=== PATIENT | female | born 1930 | race Caucasian/White ===

== ENCOUNTER 2017-04-02 14:38 | Inpatient (IN) | payer MEDICARE ==
[2017-04-02] MEDS ORDERED: Lasix 40 MG/4 ML ONE ×2 (15:10→16:00)
[2017-04-02] MEDS ORDERED: Lasix 40 MG/4 ML IV ONE ×2 (15:18→15:58)
--- NOTE | 2017-04-02 15:23 | ERPHSYRPT ---
- History of Present Illness Time Seen by Provider: 04/02/17 15:00 Source: patient Exam Limitations: clinical condition Patient Subjective Stated Complaint: PT HAS BEEN SHORT OF BREATH FOR DAYS AND IT HAS BECOME WORSE IN THE PAST DAY. EDEMA TO THE BLE. Triage Nursing Assessment: PT IS ALERT X 3. RESPIRATIONS EVEN AND NONLABORED. LUNG SOUNDS CLEAR ANTERIOR UPPER LOBES, POSTERIOR UPPER LOBES AND CRACKLES IN THE POSTERIOR MIDDLE AND LOWER LOBES. SKIN IS PINK WARM AND DRY. +2 PITTING EDEMA NOTED THE RIGHT LOWER LEGH AND +1 PITTING EDEMA TO THE LEFT LOWER LEG. Physician History: PATIENT WITH HISTORY OF ATRIAL FIBRILLATION AND CONGESTIVE HEART FAILURE COMPLAINS OF DYSPNEA UPON EXERTION FOR 3-4 DAYS. DENIES CHEST PAIN, COUGH, DIAPHORESIS AND PALPITATIONS. Timing/Duration: day(s) Activities at Onset: activity Severity of Dyspnea-Max: moderate Severity of Dyspnea-Current: moderate Possible Cause: occasional episodes Modifying Factors: Improves With: activity International travel in last 2 weeks: No Allergies/Adverse Reactions: No Known Drug Allergies Allergy (Verified 06/01/14 11:51) Home Medications: Cholecalciferol (Vitamin D3) [Vitamin D3] 1 cap PO DAILY 06/01/14 [History] Cyanocobalamin (Vitamin B-12) [Vitamin B-12] 1,000 mcg PO DAILY 06/01/14 [ History] Digoxin [Lanoxin] 1 tab PO DAILY 06/01/14 [History] Folic Acid 1 tab PO DAILY 06/01/14 [History] Losartan Potassium 100 mg PO DAILY 06/01/14 [History] Metoprolol Tartrate 50 mg [Lopressor 50 MG] 50 mg PO BID 06/01/14 [History ] Multivitamin W-Minerals/Lutein [Centrum Silver Tablet] 1 tab PO DAILY 06/01/14 [ History] Aspirin 81 mg PO DAILY 04/02/17 [History] Furosemide [Lasix] 20 mg PO DAILY 04/02/17 [History] Potassium Chloride 10 meq PO BID 04/02/17 [History] Hx Tetanus, Diphtheria Vaccination/Date Given: No Hx Influenza Vaccination/Date Given: Yes (2015) Hx Pneumococcal Vaccination/Date Given: Yes (2014) Immunizations Up to Date: Yes - Review of Systems Constitutional: No Fever, No Chills Eyes: No Symptoms Ears, Nose, & Throat: No Symptoms Respiratory: Dyspnea, Dyspnea on Exertion (RÍOS), No Cough Cardiac: No Symptoms, No Chest Pain, No Edema, No Syncope Abdominal/Gastrointestinal: No Symptoms, No Abdominal Pain, No Nausea, No Vomiting, No Diarrhea Genitourinary Symptoms: No Symptoms, No Dysuria Musculoskeletal: No Symptoms, No Back Pain, No Neck Pain Skin: No Symptoms, No Rash Neurological: No Symptoms, No Dizziness, No Focal Weakness, No Sensory Changes Psychological: No Symptoms Endocrine: No Symptoms All Other Systems: Reviewed and Negative - Past Medical History Pertinent Past Medical History: Yes Neurological History: Stroke ENT History: No Pertinent History Cardiac History: Arrhythmia, Hypertension Respiratory History: No Pertinent History Endocrine Medical History: No Pertinent History Musculoskeletal History: No Pertinent History History: No Pertinent History Psycho-Social History: No Pertinent History Female Reproductive Disorders: No Pertinent History - Past Surgical History Past Surgical History: Yes Neuro Surgical History: No Pertinent History Cardiac: No Pertinent History Respiratory: No Pertinent History Gastrointestinal: Cholecystectomy Genitourinary: No Pertinent History Musculoskeletal: No Pertinent History - Social History Smoking Status: Never smoker Exposure to second hand smoke: No (42 YRS) Drug Use: none Patient Lives Alone: No - Nursing Vital Signs Nursing Vital Signs: Initial Vital Signs Temperature 98.6 F Temperature Source Oral Pulse Rate 56 Respiratory Rate 20 Blood Pressure [] 158/83 Pain Intensity 0 - Physical Exam General Appearance: no apparent distress, alert Eye Exam: PERRL/EOMI Neck Exam: normal inspection, supple Respiratory Exam: crackles/rales (INSPIRATORY RALES) Cardiovascular/Chest Exam: normal heart sounds, regular rate/rhythm Abdominal/Gastrointestinal Exam: soft, normal bowel sounds, No tenderness, No distention, No mass Extremity Exam: non-tender, normal range of motion, normal inspection, no calf tenderness, no pedal edema Peripheral Pulses Exam: carotid (R): 2+, carotid (L): 2+, femoral (R): 2+, femoral (L): 2+, dorsalis-pedis (R): 2+, dorsalis-pedis (L): 2+ Neurologic Exam: alert, oriented x 3, cooperative, 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 tested, sensation nml, No motor deficits Skin Exam: normal color, warm, No dry SpO2 Interpretation: normal SpO2: 96 Oxygen Delivery: Room Air - Course EKG Interpreted by Me: RATE, Sinus Rhythm, Left Gaffney Deviation, 1st degree AV Block (BROAD QRS IN LEADS I AND AVL) - Radiology Exams Chest X-ray Interpretation: Discussed w/ radiologist (BORDERLINE CARDIOMEGALY WITH NEW VASCULAR CONGESTION AND SMALL BIBASILAR EFFUSONS FAVORING CARDIAC DECOMPENSATION, SUPERIMPOSED PNEUMONIA NOT COMPLETELY EXCLUDED) Ordered Tests: Active Orders 24 hr Category Date Time Status Bedrest with BRP/BSC TOLERATED Activity 04/02/17 16:49 Ordered Admission/Status Order ROUTINE Care 04/02/17 16:49 Ordered Call Admit Doctor for Orders ROUTINE Care 04/02/17 16:49 Ordered Varsity Baseball Coach STAT Care 04/02/17 15:05 Active Clean Catch Urine Specimen STAT Care 04/02/17 15:14 Active EKG-ER Only STAT Care 04/02/17 15:05 Active IV Care Q6H Care 04/02/17 16:49 Ordered IV Insertion STAT Care 04/02/17 15:05 Active Implement CHF Pathway ROUTINE Care 04/02/17 16:49 Ordered Oxygen-ED Only NASAL CANNULA 2 lpm Care 04/02/17 15:05 Active Telemetry ROUTINE Care 04/02/17 16:49 Ordered Weight,Daily 0600 Care 04/02/17 16:49 Ordered Regular Diet Diet 04/02/17 Breakfast Ordered CHEST 1 VIEW (PORTABLE) Stat Exams 04/02/17 15:06 Completed BLOOD CULTURE Stat Lab 04/02/17 13:15 Received BMP AM.LAB Lab 04/03/17 04:00 Ordered CBC AM.LAB Lab 04/03/17 04:00 Ordered CBC W DIFF Stat Lab 04/02/17 15:00 Completed CMP Stat Lab 04/02/17 15:00 Completed DIGOXIN Stat Lab 04/02/17 15:00 Completed Manual Differential NC Stat Lab 04/02/17 15:00 Completed NT PRO BNP AM.LAB Lab 04/03/17 04:00 Ordered NT PRO BNP Stat Lab 04/02/17 15:00 Completed PROTIME WITH INR Stat Lab 04/02/17 15:00 Completed TROPONIN Q3H Lab 04/02/17 15:15 Completed TROPONIN Q3H Lab 04/02/17 18:15 Ordered TROPONIN Q3H Lab 04/02/17 21:15 Ordered TROPONIN Q3H Lab 04/03/17 00:15 Ordered TROPONIN Q3H Lab 04/03/17 03:15 Ordered UA W/ MICROSCOPIC Stat Lab 04/02/17 15:30 Completed Oxygen NASAL CANNULA 2 lpm RT 04/02/17 16:49 Ordered Transfer Order Routine Transfer 04/02/17 16:49 Ordered Medication Summary Generic Name Dose Route Start Last Admin Trade Name Jeromy PRN Reason Stop Dose Admin Azithromycin 500 mg in 250 mls @ 250 mls/hr 04/02/17 16:05 04/02/17 16:25 Zithromax 500 Mg/ 250 Ml Nacl Premix IV 04/02/17 17:04 250 mls/hr STAT STA Administration Discontinued Medications Generic Name Dose Route Start Last Admin Trade Name Jeromy PRN Reason Stop Dose Admin Furosemide Confirm 04/02/17 15:10 Lasix 40 Mg/4 Ml Administered 04/02/17 15:11 Dose 40 mg .ROUTE .STK-MED ONE Furosemide 20 mg 04/02/17 15:18 04/02/17 15:20 Lasix 40 Mg/4 Ml IV 04/02/17 15:19 20 mg STAT ONE Administration Furosemide 20 mg 04/02/17 15:58 04/02/17 16:05 Lasix 40 Mg/4 Ml IV 04/02/17 15:59 20 mg STAT ONE Administration Furosemide Confirm 04/02/17 16:00 Lasix 40 Mg/4 Ml Administered 04/02/17 16:01 Dose 40 mg .ROUTE .STK-MED ONE Hydralazine HCl 10 mg 04/02/17 15:51 04/02/17 16:09 Apresoline 20 Mg/Ml Inj IV 04/02/17 15:52 10 mg STAT ONE Administration Hydralazine HCl Confirm 04/02/17 15:56 Apresoline 20 Mg/Ml Inj Administered 04/02/17 15:57 Dose 20 mg .ROUTE .STK-MED ONE Ceftriaxone Sodium/Dextrose 1 g in 50 mls @ 100 mls/hr 04/02/17 16:05 16:16 Rocephin 1 Gm-D5w 50 Ml Bag IV 04/02/17 16:34 100 mls/hr STAT STA Administration Ceftriaxone Sodium/Dextrose Confirm 04/02/17 16:14 Rocephin 1 Gm-D5w 50 Ml Bag Administered 04/02/17 16:15 Dose 1 g in 50 mls @ ud IV .STK-MED ONE Azithromycin Confirm 04/02/17 16:23 Zithromax 500 Mg/ 250 Ml Nacl Premix Administered 04/02/17 16:24 Dose 500 mg in 250 mls @ ud IV .STK-MED ONE Lab/Rad Data: Laboratory Result Diagrams 04/02/17 15:00 04/02/17 15:00 Laboratory Results 04/02/17 04/02/17 04/02/17 Range/Units 15:30 15:15 15:00 WBC (4.0-10.5) K/mm3 RBC (4.1-5.4) M/mm3 Hgb (12.0-16.0) gm/dl Hct (35-47) % MCV (78-100) fl MCH (26-32) pg MCHC (32-36) g/dl RDW (11.5-14.0) % Plt Count (150-450) K/mm3 MPV (6-9.5) fl Gran % (36.0-66.0) % Lymphocytes % (24.0-44.0) % Monocytes % (0.0-12.0) % Eosinophils % (0.00-5.0) % Basophils % (0.0-0.4) % Basophils # (0-0.4) INR (0.8-3.0) Sodium (136-145) mEq/L Potassium (3.5-5.1) mEq/L Chloride (98-107) mEq/L Carbon Dioxide (21-32) mEq/L Anion Gap (5-15) MEQ/L BUN (9-20) mg/dL Creatinine (0.55-1.30) mg/dl Estimated GFR ML/MIN Glucose (70-110) MG/DL Calcium (8.5-10.1) mg/dL Total Bilirubin (0.2-1.0) mg/dL AST (15-37) U/L ALT (12-78) U/L Alkaline Phosphatase (46-116) U/L Troponin I 0.039 (0.000-0.056) ng/ml NT-Pro-B Natriuret Pep (0-450) pg/ml Serum Total Protein (6.4-8.2) gm/dL Albumin (3.4-5.0) g/dL Ur Collection Type VOID Urine Color YELLOW (YELLOW) Urine Appearance CLEAR (CLEAR) Urine pH 6.0 (5-6) Ur Specific [place] 1.010 (1.005-1.025) Urine Protein TRACE (Negative) Urine Ketones NEGATIVE (NEGATIVE) Urine Blood 5-10 (0-5) Ruddy/ul Urine Nitrite NEGATIVE (NEGATIVE) Urine Bilirubin NEGATIVE (NEGATIVE) Urine Urobilinogen NORMAL (0-1) mg/dL Ur Leukocyte Esterase NEGATIVE (NEGATIVE) Urine Microscopic RBC 0-2 (0-2) /HPF Ur Epithelial Cells FEW (FEW) /HPF Urine Bacteria FEW (NEGATIVE) /HPF Urine Glucose 50 (NEGATIVE) mg/dL Digoxin 1.50 (0.5-1.5) ng/ml Specimen Received 04/02/17 1530 04/02/17 04/02/17 04/02/17 Range/Units 15:00 15:00 15:00 WBC 9.0 (4.0-10.5) K/mm3 RBC 4.63 (4.1-5.4) M/mm3 Hgb 13.5 (12.0-16.0) gm/dl Hct 43.9 (35-47) % MCV 94.8 (78-100) fl MCH 29.2 (26-32) pg MCHC 30.8 L (32-36) g/dl RDW 14.2 H (11.5-14.0) % Plt Count 167 (150-450) K/mm3 MPV 10.7 H (6-9.5) fl Gran % 71.8 H (36.0-66.0) % Lymphocytes % 19.2 L (24.0-44.0) % Monocytes % 6.6 (0.0-12.0) % Eosinophils % 2.1 (0.00-5.0) % Basophils % 0.3 (0.0-0.4) % Basophils # 0.03 (0-0.4) INR 1.32 (0.8-3.0) Sodium 141 (136-145) mEq/L Potassium 4.2 (3.5-5.1) mEq/L Chloride 106 (98-107) mEq/L Carbon Dioxide 24.4 (21-32) mEq/L Anion Gap 15.0 (5-15) MEQ/L BUN 24 H (9-20) mg/dL Creatinine 1.25 (0.55-1.30) mg/dl Estimated GFR 43 ML/MIN Glucose 245 H (70-110) MG/DL Calcium 10.1 (8.5-10.1) mg/dL Total Bilirubin 2.20 H (0.2-1.0) mg/dL AST 28 (15-37) U/L ALT 39 (12-78) U/L Alkaline Phosphatase 64 (46-116) U/L Troponin I (0.000-0.056) ng/ml NT-Pro-B Natriuret Pep 1388 H (0-450) pg/ml Serum Total Protein 7.5 (6.4-8.2) gm/dL Albumin 3.6 (3.4-5.0) g/dL Ur Collection Type Urine Color (YELLOW) Urine Appearance (CLEAR) Urine pH (5-6) Ur Specific [place] (1.005-1.025) Urine Protein (Negative) Urine Ketones (NEGATIVE) Urine Blood (0-5) Ruddy/ul Urine Nitrite (NEGATIVE) Urine Bilirubin (NEGATIVE) Urine Urobilinogen (0-1) mg/dL Ur Leukocyte Esterase (NEGATIVE) Urine Microscopic RBC (0-2) /HPF Ur Epithelial Cells (FEW) /HPF Urine Bacteria (NEGATIVE) /HPF Urine Glucose (NEGATIVE) mg/dL Digoxin (0.5-1.5) ng/ml Specimen Received - Progress Progress Note: 04/02/17 16:22 PATIENT GIVEN LASIX 40MG IV, HYDRALAZINE 10MG FOR BP 210/105, DIURESIS OF 1300, BP IMPROVE TO BP 158/83 Blood Culture(s) Obtained: Yes Antibiotics given: Yes Discussed with : Joy (DISCUSSED WITH DR SCOTT AT 1610 FOR ADMISSION) Will see patient in: hospital (full admit) - Departure Time of Disposition: 16:55 Departure Disposition: In-patient Admission Clinical Impression: ACUTE CONGESTIVE HEART FAILURE, PNEUMONIA Condition: Stable Critical Care Time: No Referrals: PO SCOTT MD [Primary Care Provider] -
--- NOTE | 2017-04-02 15:24 | XRAY ---
Indication: Dyspnea. Lower extremity pain and swelling. Comparison: February 12, 2017. Portable chest demonstrates again borderline cardiomegaly with new vascular congestion and small bibasilar effusions favoring cardiac decompensation. Superimposed pneumonia not completely excluded. Stable osteopenia and degenerative changes.
[2017-04-02 15:35] LABS: BASOPHIL % 0.3 % (0.0-0.4); Eosinophil % 2.1 % (0.00-5.0); Granulocytes % 71.8 % (36.0-66.0); Lymphocytes % 19.2 % (24.0-44.0); Mean Cell Volume 94.8 fl (78-100); Mean Corpuscular Hemoglobin 29.2 pg (26-32); Mean Platelet Volume 10.7 fl (6-9.5); Monocytes % 6.6 % (0.0-12.0); Platelet Count 167 K/mm3 (150-450); Red Blood Count 4.63 M/mm3 (4.1-5.4); Red Cell Distribution Width 14.2 % (11.5-14.0)
[2017-04-02 15:36] LABS: INR 1.32 (0.8-3.0)
[2017-04-02 15:51] LABS: ALBUMIN 3.6 g/dL (3.4-5.0); BILIRUBIN,TOTAL 2.2 mg/dL (0.2-1.0); Carbon Dioxide 24.4 mEq/L (21-32); Potassium 4.2 mEq/L (3.5-5.1); Total Protein 7.5 gm/dL (6.4-8.2)
[2017-04-02] MEDS ORDERED: APRESOLINE 20 MG/ML INJ IV ONE (15:51)
[2017-04-02 15:54] LABS: Bilirubin NEGATIVE (NEGATIVE); COMPLETE URINE MICROSCOPIC? YES; Collection Type VOID; Glucose 50 mg/dL (NEGATIVE); Leukocyte Esterase NEGATIVE (NEGATIVE)
[2017-04-02] MEDS ORDERED: APRESOLINE 20 MG/ML INJ ONE (15:56)
[2017-04-02 16:04] LABS: Bacteria FEW /HPF (NEGATIVE); Epithelial Cells FEW /HPF (FEW)
[2017-04-02] MEDS ORDERED: ROCEPHIN 1 Gm-D5w 50 ml Bag** 1 G/50 ML IVPB IV STA (16:05)
[2017-04-02] MEDS ORDERED: Zithromax 500 MG/ 250 ML NaCl Premix 500 MG/250 ML IVPB IV STA (16:05)
[2017-04-02] MEDS ORDERED: ROCEPHIN 1 Gm-D5w 50 ml Bag** 1 G/50 ML IVPB IV ONE (16:14)
[2017-04-02] MEDS ORDERED: Zithromax 500 MG/ 250 ML NaCl Premix 500 MG/250 ML IVPB IV ONE (16:23)
[2017-04-02 17:06] LABS: Eosinophil 4 % (0.00-3.0); Platelet Estimate NORMAL (NORMAL); Total Cells Counted 100
[2017-04-02] MEDS: Lasix 20 MG/2 ML IV SCH (17:58)
[2017-04-02] MEDS ORDERED: Cozaar 50 MG ONE (19:13)
[2017-04-02] MEDS: Lopressor 50 MG PO SCH (23:09)
[2017-04-02] MEDS: Klor Con 10 MEQ PO SCH (23:09)
[2017-04-03 03:31] LABS: Platelet Count 178 K/mm3 (150-450); Red Cell Distribution Width 14.3 % (11.5-14.0); White Blood Count 9.2 K/mm3 (4.0-10.5)
[2017-04-03 03:55] LABS: ANION GAP 13.3 MEQ/L (5-15); Carbon Dioxide 26.5 mEq/L (21-32); Potassium 3.6 mEq/L (3.5-5.1)
[2017-04-03] MEDS: ECOTRIN 81 MG PO SCH (08:17)
[2017-04-03] MEDS: Cozaar 50 MG PO SCH (08:18)
[2017-04-03] MEDS: VITAMIN D PO SCH (08:18)
[2017-04-03] MEDS: Lasix 20 MG/2 ML IV SCH ×2 (08:19→16:01)
[2017-04-03] MEDS: Klor Con 10 MEQ PO SCH ×2 (08:19→22:02)
[2017-04-03] MEDS: FOLATE 1 MG PO SCH (08:19)
[2017-04-03] MEDS: Lopressor 50 MG PO SCH ×2 (08:19→22:02)
[2017-04-03] MEDS: THERAGRAN MULTIVITAMIN PO SCH (08:19)
[2017-04-03] MEDS: Vitamin B-12 500 MCG PO SCH (08:23)
[2017-04-03] MEDS: ROCEPHIN 1 Gm-D5w 50 ml Bag** 1 G/50 ML IVPB IV SCH (09:43)
[2017-04-03] MEDS ORDERED: NON-FORMULARY ITEM (Aspirin [Aspirin] 81 MG) PO SCH (10:00)
[2017-04-03] MEDS ORDERED: NON-FORMULARY ITEM (Multivitamin W-Minerals/Lutein [Centrum Silver Tablet] 1 TAB) PO SCH (10:00)
[2017-04-03] MEDS ORDERED: Lanoxin 0.125MG TABLET PO SCH (10:00)
[2017-04-03] MEDS ORDERED: Lasix 20 MG/2 ML IV SCH (10:00)
[2017-04-03] MEDS ORDERED: NON-FORMULARY ITEM (Cyanocobalamin (Vitamin B-12) [Vitamin B-12] 1,000 MCG) PO SCH (10:00)
[2017-04-03] MEDS ORDERED: FOLIC ACID PO SCH (10:00)
[2017-04-03] MEDS ORDERED: NON-FORMULARY ITEM (Cholecalciferol (Vitamin D3) [Vitamin D3] 1 CAP) PO SCH (10:00)
[2017-04-03] MEDS: Zithromax 500 MG/ 250 ML NaCl Premix 500 MG/250 ML IVPB IV SCH (10:15)
--- NOTE | 2017-04-03 12:53 | PCM.HP ---
History of Present Illness - Chief Complaint Chief Complaint: c/o shortness of breath for 1-2 days History of Present Illness: is a 86 year old female.came to ER with c/o shortness of breath and chest heaviness, Patient blood pressure was high. Patient lives at assited living facilities - Review of Systems Constitutional: No Fever, No Chills Eyes: No Symptoms Ears, Nose, & Throat: No Symptoms Respiratory: No Cough, No Short Of Breath Cardiac: No Chest Pain, No Edema, No Syncope Abdominal/Gastrointestinal: No Abdominal Pain, No Nausea, No Vomiting, No Diarrhea Genitourinary Symptoms: No Dysuria Musculoskeletal: No Back Pain, No Neck Pain Skin: No Rash Neurological: No Dizziness, No Focal Weakness, No Sensory Changes Psychological: No Symptoms Endocrine: No Symptoms Hematologic/Lymphatic: No Symptoms Immunological/Allergic: No Symptoms Medications & Allergies Home Medications: Home Medication List Cholecalciferol (Vitamin D3) [Vitamin D3] 1 cap PO DAILY 06/01/14 [History Confirmed 04/02/17] Cyanocobalamin (Vitamin B-12) [Vitamin B-12] 1,000 mcg PO DAILY 06/01/14 [ History Confirmed 04/02/17] Digoxin [Lanoxin] 1 tab PO DAILY 06/01/14 [History Confirmed 04/02/17] Folic Acid 1 tab PO DAILY 06/01/14 [History Confirmed 04/02/17] Losartan Potassium 100 mg PO DAILY 06/01/14 [History Confirmed 04/02/17] Metoprolol Tartrate 50 mg [Lopressor 50 MG] 50 mg PO BID 06/01/14 [ History Confirmed 04/02/17] Multivitamin W-Minerals/Lutein [Centrum Silver Tablet] 1 tab PO DAILY 06/01/14 [ History Confirmed 04/02/17] Aspirin 81 mg PO DAILY 04/02/17 [History Confirmed 04/02/17] Furosemide [Lasix] 20 mg PO DAILY 04/02/17 [History Confirmed 04/02/17] Potassium Chloride 10 meq PO BID 04/02/17 [History Confirmed 04/02/17] Allergies/Adverse Reactions: Allergies Allergy/AdvReac Type Severity Reaction Status Date / Time No Known Drug Allergies Allergy Verified 06/01/14 11:51 - Past Medical History Past Medical History: Yes Neurological History: Stroke ENT History: No Pertinent History Cardiac History: Arrhythmia, Hypertension Respiratory History: No Pertinent History Endocrine Medical History: No Pertinent History Musculoskelatal History: No Pertinent History GI Medical History: No Pertinent History History: No Pertinent History Pyscho-Social History: No Pertinent History Reproductive Disorders: No Pertinent History - Female History Are you now?: No - Past Surgical History Past Surgical History: Yes Neuro Surgical History: No Pertinent History Cardiac History: No Pertinent History Respiratory Surgery: No Pertinent History GI Surgical History: Cholecystectomy Genitourinary Surgical Hx: No Pertinent History Musculskeletal Surgical Hx: No Pertinent History Female Surgical History: No Pertinent History - Social History Smoking Status: Never smoker Exposure to second hand smoke: No (42 YRS) Alcohol: None Drug Use: none - Physical Exam Vital Signs: Vital Signs - 24 hr Temp Pulse Resp BP BP Pulse Ox 04/03/17 12:45 200/76 04/03/17 11:08 98.3 F 67 12 201/81 95 04/03/17 09:04 54 L 18 93 L 04/03/17 07:34 98.8 F 53 L 12 186/81 93 L 04/03/17 04:00 98.5 F 69 20 170/70 93 L 04/02/17 23:58 98.7 F 73 18 155/71 95 04/02/17 20:43 161/77 04/02/17 20:02 74 22 92 L 04/02/17 19:41 98.0 F 67 24 202/88 96 04/02/17 18:00 98.0 F 64 20 229/90 97 04/02/17 17:52 95 04/02/17 17:41 66 20 187/76 96 04/02/17 16:54 96 04/02/17 16:32 56 L 20 158/83 04/02/17 15:50 54 L 24 220/92 98 04/02/17 15:28 61 24 210/91 98 04/02/17 14:52 20 96 04/02/17 14:38 98.6 F 63 20 93 L Oxygen-Last 24 hours O2 Percentage 2 Liters = 28% O2 Percentage 2 Liters = 28% General Appearance: no apparent distress, alert Neurologic Exam: alert, oriented x 3, cooperative, normal mood/affect, nml cerebellar function, nml station & gait, sensation nml, No motor deficits Eye Exam: PERRL/EOMI, eyes nml inspection Ears, Nose, Throat Exam: normal ENT inspection, TMs normal, pharynx normal, moist mucous membranes Neck Exam: normal inspection, non-tender, supple, full range of motion Respiratory Exam: normal breath sounds, lungs clear, No respiratory distress Cardiovascular Exam: regular rate/rhythm, normal heart sounds, normal peripheral pulses Gastrointestinal/Abdomen Exam: soft, normal bowel sounds, No tenderness, No mass Back Exam: normal inspection, normal range of motion, No CVA tenderness, No vertebral tenderness Extremity Exam: normal inspection, normal range of motion, pelvis stable Skin Exam: normal color, warm, dry, No rash Lymphatic Exam: No adenopathy Results - Labs Lab/Micro Results: Lab Results-Last 24 Hours 04/02/17 04/02/17 04/03/17 Range/Units 18:20 21:15 00:18 WBC (4.0-10.5) K/mm3 RBC (4.1-5.4) M/mm3 Hgb (12.0-16.0) gm/dl Hct (35-47) % MCV (78-100) fl MCH (26-32) pg MCHC (32-36) g/dl RDW (11.5-14.0) % Plt Count (150-450) K/mm3 MPV (6-9.5) fl Sodium (136-145) mEq/L Potassium (3.5-5.1) mEq/L Chloride (98-107) mEq/L Carbon Dioxide (21-32) mEq/L Anion Gap (5-15) MEQ/L BUN (9-20) mg/dL Creatinine (0.55-1.30) mg/dl Estimated GFR ML/MIN Glucose (70-110) MG/DL Calcium (8.5-10.1) mg/dL Troponin I 0.037 0.045 0.058 H* (0.000-0.056) ng/ml NT-Pro-B Natriuret Pep (0-450) pg/ml 04/03/17 04/03/17 04/03/17 Range/Units 03:27 03:27 03:27 WBC 9.2 (4.0-10.5) K/mm3 RBC 4.80 (4.1-5.4) M/mm3 Hgb 13.9 (12.0-16.0) gm/dl Hct 43.7 (35-47) % MCV 91.0 (78-100) fl MCH 29.0 (26-32) pg MCHC 31.8 L (32-36) g/dl RDW 14.3 H (11.5-14.0) % Plt Count 178 (150-450) K/mm3 MPV 10.0 H (6-9.5) fl Sodium 142 (136-145) mEq/L Potassium 3.6 (3.5-5.1) mEq/L Chloride 106 (98-107) mEq/L Carbon Dioxide 26.5 (21-32) mEq/L Anion Gap 13.3 (5-15) MEQ/L BUN 20 (9-20) mg/dL Creatinine 1.03 (0.55-1.30) mg/dl Estimated GFR 54 ML/MIN Glucose 222 H (70-110) MG/DL Calcium 9.8 (8.5-10.1) mg/dL Troponin I 0.069 H* (0.000-0.056) ng/ml NT-Pro-B Natriuret Pep 2088 H (0-450) pg/ml 04/03/17 Range/Units 08:31 WBC (4.0-10.5) K/mm3 RBC (4.1-5.4) M/mm3 Hgb (12.0-16.0) gm/dl Hct (35-47) % MCV (78-100) fl MCH (26-32) pg MCHC (32-36) g/dl RDW (11.5-14.0) % Plt Count (150-450) K/mm3 MPV (6-9.5) fl Sodium (136-145) mEq/L Potassium (3.5-5.1) mEq/L Chloride (98-107) mEq/L Carbon Dioxide (21-32) mEq/L Anion Gap (5-15) MEQ/L BUN (9-20) mg/dL Creatinine (0.55-1.30) mg/dl Estimated GFR ML/MIN Glucose (70-110) MG/DL Calcium (8.5-10.1) mg/dL Troponin I 0.069 H* (0.000-0.056) ng/ml NT-Pro-B Natriuret Pep (0-450) pg/ml - Other Procedures and Tests Respiratory Therapy 04/02/17 16:49 Oxygen NASAL CANNULA 2 lpm Assessment/Plan (1) Hypertensive emergency Current Visit: Yes Status: Acute Assessment & Plan: will admit patient will continue antihypertensive medications and IV lasix Code(s): I16.1 - HYPERTENSIVE EMERGENCY (2) Hypertensive CHF (congestive heart failure) Current Visit: Yes Status: Chronic Assessment & Plan: continue lasix Code(s): I11.0 - HYPERTENSIVE HEART DISEASE WITH HEART FAILURE
[2017-04-03] MEDS: Catapres 0.1 MG PO SCH ×2 (13:29→22:01)
[2017-04-03] MEDS ORDERED: Lasix 20 MG/2 ML IV ONE (15:55)
[2017-04-03] MEDS ORDERED: Lopressor 50 MG PO ONE (17:15)
[2017-04-03] MEDS ORDERED: Cozaar 50 MG PO ONE (19:15)
[2017-04-04] MEDS: VITAMIN D PO SCH (09:02)
[2017-04-04] MEDS: Cozaar 50 MG PO SCH (09:02)
[2017-04-04] MEDS: FOLATE 1 MG PO SCH (09:02)
[2017-04-04] MEDS: ROCEPHIN 1 Gm-D5w 50 ml Bag** 1 G/50 ML IVPB IV SCH (09:02)
[2017-04-04] MEDS: ECOTRIN 81 MG PO SCH (09:03)
[2017-04-04] MEDS: Klor Con 10 MEQ PO SCH (09:03)
[2017-04-04] MEDS: Catapres 0.1 MG PO SCH (09:03)
[2017-04-04] MEDS: Lopressor 50 MG PO SCH (09:03)
[2017-04-04] MEDS: THERAGRAN MULTIVITAMIN PO SCH (09:03)
[2017-04-04] MEDS: Lasix 20 MG/2 ML IV SCH (09:03)
[2017-04-04] MEDS: Vitamin B-12 500 MCG PO SCH (09:03)
[2017-04-04] MEDS: Zithromax 500 MG/ 250 ML NaCl Premix 500 MG/250 ML IVPB IV SCH (09:42)
--- NOTE | 2017-04-04 13:21 | PCM.DS ---
Discharge Summary Date of Admission: 04/02/17 17:41 Admitting Physician: PO SCOTT Primary Care Provider: PO SCOTT Allergies Allergies No Known Drug Allergies Allergy (Verified 06/01/14 11:51) Hospital Summary - Hospital Course Hospital Course: Chief Complaint Diagnosis c/o shortness of breath for 1-2 days Allergies Allergy/AdvReac Type Severity Reaction Status Date / Time No Known Drug Allergies Allergy Verified 06/01/14 11:51 Vital Signs (Last 24 hours) Temp Pulse Resp BP BP Pulse Ox 04/04/17 12:51 97.8 F 04/04/17 07:09 98 F 74 18 120/56 201/81 97 04/04/17 04:05 98.1 F 79 18 122/58 96 04/03/17 23:29 98.1 F 81 18 97/55 97 04/03/17 20:14 92 L 04/03/17 19:49 98.2 F 76 20 137/72 96 04/03/17 14:54 98.6 F 80 15 164/75 93 L Home Medications Medication Instructions Recorded Confirmed Last Taken Type Aspirin 81 mg PO DAILY 04/02/17 04/02/17 04/02/17 History Furosemide [Lasix] 20 mg PO DAILY 04/02/17 04/02/17 04/02/17 History Potassium Chloride 10 meq PO BID 04/02/17 04/02/17 04/02/17 History Current Medications Generic Name Dose Route Start Last Admin Trade Name Freq PRN Reason Stop Dose Admin Aspirin 81 mg 04/03/17 10:00 04/04/17 09:03 Ecotrin 81 Mg PO 05/03/17 09:59 81 mg DAILY MARGI Administration Cholecalciferol 2,000 unit 04/03/17 10:00 04/04/17 09:02 Vitamin D PO 05/03/17 09:59 2,000 unit DAILY MARGI Administration Clonidine 0.1 mg 04/03/17 13:30 04/04/17 09:03 Catapres 0.1 Mg PO 05/03/17 13:29 0.1 mg BID MARGI Administration Cyanocobalamin 1,000 mcg 04/03/17 10:00 04/04/17 09:03 Vitamin B-12 500 Mcg PO 05/03/17 09:59 1,000 mcg DAILY MARGI Administration Folic Acid 1 mg 04/03/17 10:00 04/04/17 09:02 Folate 1 Mg PO 05/03/17 09:59 1 mg DAILY MARGI Administration Furosemide 20 mg 04/02/17 17:00 04/04/17 09:03 Lasix 20 Mg/2 Ml IV 05/02/17 16:59 20 mg BID DIURETIC MARGI Administration Azithromycin 500 mg in 250 mls @ 250 mls/hr 04/03/17 10:00 04/04/17 09:42 Zithromax 500 Mg/ 250 Ml Nacl Premix IV 05/03/17 09:59 250 mls/hr Q24H10 MARGI Administration Ceftriaxone Sodium/Dextrose 1 g in 50 mls @ 100 mls/hr 04/03/17 10:00 09:02 Rocephin 1 Gm-D5w 50 Ml Bag IV 05/03/17 09:59 100 mls/hr Q24H10 MARGI Administration Losartan Potassium 100 mg 04/03/17 10:00 04/04/17 09:02 Cozaar 50 Mg PO 05/03/17 09:59 100 mg DAILY MARGI Administration Metoprolol Tartrate 50 mg 04/02/17 22:00 04/04/17 09:03 Lopressor 50 Mg PO 05/02/17 21:59 50 mg BID MARGI Administration Multivitamins 1 tab 04/03/17 10:00 04/04/17 09:03 Theragran Multivitamin PO 05/03/17 09:59 1 tab DAILY MARGI Administration Potassium Chloride 10 meq 04/02/17 22:00 04/04/17 09:03 Klor Con 10 Meq PO 05/02/17 21:59 10 meq BID MARGI Administration Discontinued Medications Generic Name Dose Route Start Last Admin Trade Name Freq PRN Reason Stop Dose Admin Digoxin 0.125 mg 04/03/17 10:00 Lanoxin 0.125mg Tablet PO 05/03/17 09:59 DAILY MARGI Furosemide Confirm 04/02/17 15:10 Lasix 40 Mg/4 Ml Administered 04/02/17 15:11 Dose 40 mg .ROUTE .STK-MED ONE Furosemide 20 mg 04/02/17 15:18 04/02/17 15:20 Lasix 40 Mg/4 Ml IV 04/02/17 15:19 20 mg STAT ONE Administration Furosemide 20 mg 04/02/17 15:58 04/02/17 16:05 Lasix 40 Mg/4 Ml IV 04/02/17 15:59 20 mg STAT ONE Administration Furosemide Confirm 04/02/17 16:00 Lasix 40 Mg/4 Ml Administered 04/02/17 16:01 Dose 40 mg .ROUTE .STK-MED ONE Hydralazine HCl 10 mg 04/02/17 15:51 04/02/17 16:09 Apresoline 20 Mg/Ml Inj IV 04/02/17 15:52 10 mg STAT ONE Administration Hydralazine HCl Confirm 04/02/17 15:56 Apresoline 20 Mg/Ml Inj Administered 04/02/17 15:57 Dose 20 mg .ROUTE .STK-MED ONE Ceftriaxone Sodium/Dextrose 1 g in 50 mls @ 100 mls/hr 04/02/17 16:05 16:16 Rocephin 1 Gm-D5w 50 Ml Bag IV 04/02/17 16:34 100 mls/hr STAT STA Administration Azithromycin 500 mg in 250 mls @ 250 mls/hr 04/02/17 16:05 04/02/17 16:25 Zithromax 500 Mg/ 250 Ml Nacl Premix IV 04/02/17 17:04 250 mls/hr STAT STA Administration Ceftriaxone Sodium/Dextrose Confirm 04/02/17 16:14 Rocephin 1 Gm-D5w 50 Ml Bag Administered 04/02/17 16:15 Dose 1 g in 50 mls @ ud IV .STK-MED ONE Azithromycin Confirm 04/02/17 16:23 Zithromax 500 Mg/ 250 Ml Nacl Premix Administered 04/02/17 16:24 Dose 500 mg in 250 mls @ ud IV .STK-MED ONE Losartan Potassium 100 mg 04/03/17 19:15 04/02/17 19:16 Cozaar 50 Mg PO 04/03/17 19:16 100 mg STAT ONE Administration Losartan Potassium Confirm 04/02/17 19:13 Cozaar 50 Mg Administered 04/02/17 19:14 Dose 100 mg .ROUTE .STK-MED ONE Metoprolol Tartrate 50 mg 04/03/17 17:15 04/02/17 19:16 Lopressor 50 Mg PO 04/03/17 17:16 50 mg STAT ONE Administration Intake & Output (Last 24 hours) 04/02/17 04/03/17 04/04/17 04/05/17 11:59 11:59 11:59 11:59 Intake Total 500 1660 240 Output Total 4600 1675 450 Balance -4100 -15 -210 Weight 59.92 kg 60.237 kg Microbiology Results (Last 24 hours) 04/02/17 13:15 Blood - Pending 04/02/17 13:15 Blood Blood Culture - Preliminary NO GROWTH TO DATE 04/02/17 15:00 Blood - Final 04/02/17 15:00 Blood Blood Culture - Preliminary Coagulase Negative Staph. Possible Contaminant. Clinical judgement required. NO FURTHER WORKUP WILL BE PERFORMED UNLESS PHYSICIAN REQUESTED WITHIN THE NEXT 72 HOURS Orders (Last 24 hours) Category Date Time Status Clonidine HCl 0.1 mg [Catapres 0.1 MG] Med 04/03/17 13:30 Active 0.1 mg PO BID Losartan Potassium 50 mg [Cozaar 50 MG] Med 04/03/17 19:15 Discontinued 100 mg PO STAT ONE Metoprolol Tartrate 50 mg [Lopressor 50 MG] Med 04/03/17 17:15 Discontinued 50 mg PO STAT ONE Patient Care Notes (Last 24 hours) 04/04/17 10:15 (created 04/04/17 13:15) Case Management Note by Jenny Song REVIEWED DISCHARGE PLAN. CONTINUES TO PLAN TO RETURN TO [facility] WITH . DECLINED ADD NEEDS. WILL CONTINUE TO FOLLOW AND ASSESS FOR ALL DC NEEDS. Initialized on 04/04/17 13:15 - END OF NOTE 04/03/17 14:00 Nursing Note by MARÍA OLIVEIRA Positive blood culture result called to Dr. Scott's nurse at the [place] office today at 1400. Initialized on 04/03/17 14:00 - END OF NOTE Doing better, blood culture possible contaminations.BP is under control. will d/c her home - Vitals & Intake/Output Vital Signs: Vital Signs Temperature 97.8 F 04/04/17 12:51 Pulse Rate 74 04/04/17 07:09 Respiratory Rate 18 04/04/17 07:09 Blood Pressure 201/81 04/04/17 07:09 O2 Sat by Pulse Oximetry 97 04/04/17 07:09 Oxygen-Last Documented O2 Percentage 2 Liters = 28% Intake & Output: Intake & Output 04/02/17 04/03/17 04/04/17 04/05/17 11:59 11:59 11:59 11:59 Intake Total 500 1660 240 Output Total 4000 1675 450 Balance -3500 -15 -210 Weight 59.92 kg 60.237 kg - Lab Result Diagrams: 04/03/17 03:27 04/03/17 03:27 - Procedures and Test Procedures and Tests throughout Hospitalization: Therapy Orders & Screens 04/02/17 16:49 Oxygen NASAL CANNULA 2 lpm Comment: Diagnosis: CHF Discharge Exam General Appearance: no apparent distress, alert Neurologic Exam: alert, oriented x 3, cooperative, normal mood/affect, nml cerebellar function, sensation nml, No motor deficits Skin Exam: normal color, warm, dry Eye Exam: PERRL, EOMI, eyes nml inspection Ears, Nose, Throat Exam: normal ENT inspection, pharynx normal, moist mucous membranes Neck Exam: normal inspection, non-tender, supple, full range of motion Respiratory Exam: normal breath sounds, lungs clear, No respiratory distress Cardiovascular Exam: regular rate/rhythm, normal heart sounds Gastrointestinal/Abdomen Exam: soft, No tenderness, No mass Extremity Exam: normal inspection, normal range of motion Back Exam: normal inspection, normal range of motion, No CVA tenderness, No vertebral tenderness Pelvic Exam: deferred Rectal Exam: deferred Final Diagnosis/Problem List - Final Discharge Diagnosis/Problem (1) Hypertensive emergency Current Visit: Yes Status: Resolved Priority: High (2) Hypertensive CHF (congestive heart failure) Current Visit: Yes Status: Chronic Priority: High - Discharge Discharge Date: 04/04/17 Disposition: Home, Self-Care Condition: Stable Prescriptions: New Clonidine HCl 0.1 mg [Catapres 0.1 MG] 0.1 mg PO BID #0 tablet Continue Metoprolol Tartrate 50 mg [Lopressor 50 MG] 50 mg PO BID Folic Acid 1 tab PO DAILY Digoxin [Lanoxin] 1 tab PO DAILY Losartan Potassium 100 mg PO DAILY Multivitamin W-Minerals/Lutein [Centrum Silver Tablet] 1 tab PO DAILY Cholecalciferol (Vitamin D3) [Vitamin D3] 1 cap PO DAILY Cyanocobalamin (Vitamin B-12) [Vitamin B-12] 1,000 mcg PO DAILY Furosemide [Lasix] 20 mg PO DAILY Aspirin 81 mg PO DAILY Potassium Chloride 10 meq PO BID Follow up with: PO SCOTT MD [Primary Care Provider] - 1 Week
[2017-04-04 14:14] VITALS: BP 126/74; PULSE 86; O2SAT 96
== END 2017-04-04 14:25 | disposition home or self-care (01) | DRG 309 ==
LOC: ED 14:38 → MED SURG 17:41
PROVIDERS: ADMIT General Practice; ATTEND General Practice
DX: I48.91 Unspecified atrial fibrillation (principal); I16.1 Hypertensive emergency; I11.0 Hypertensive heart disease with heart failure; I50.9 Heart failure, unspecified; Z79.899 Other long term (current) drug therapy; Z86.73 Personal history of transient ischemic attack (TIA), and cerebral infarction without residual deficits
CPT/HCPCS: 36000; 36415; 71010; 80048; 80053; 80162; 81000; 82962; 83880; 84484; 85025; 85027; 85610; 87040; 93005; 93041; 94760; 96365; 96374; 96375; 96376; 99285; J0360; J0456; J0696; J1940; A9270-GY

== ENCOUNTER 2017-12-29 13:53 | Observation (INO) | payer MEDICARE ==
--- NOTE | 2017-12-29 14:23 | ERPHSYRPT ---
- History of Present Illness Time Seen by Provider: 12/29/17 14:18 Source: patient, EMS Exam Limitations: no limitations Patient Subjective Stated Complaint: pt brought in by ambulance for weakness, pt states she does not feel like she needs to be here, she states uses walker, no falls. she states she just aging Triage Nursing Assessment: pt alert. resp easy, skin w/d/p, Physician History: patient was sent from [facility] for evaluation of generalized weakness. Patient's with previous history of CVA, who had been having generalized weakness for the past 7 days. Patient states that she is weak all over without any focal deficits. Patient does ambulate with walker and noticed decrease stamina. Patient also notes she's been having more thirst and urinary frequency , but no dysuria or urgency. Patient denies any headaches, blurred vision, dizziness, chest pain, palpitation, abdominal pain, fever, chills, cough, shortness of breath or any illness. Patient also states that "I don't know why I am in the ER." Timing/Duration: day(s) (7) Severity: mild Modifying Factors: Improves With: immobilization (improved), movement (worsen) Associated Symptoms: denies symptoms, No nausea, No vomiting, No shortness of breath, No fever, No malaise, No syncope Allergies/Adverse Reactions: No Known Drug Allergies Allergy (Verified 12/29/17 14:00) Home Medications: Cholecalciferol (Vitamin D3) [Vitamin D3] 1 cap PO DAILY 06/01/14 [History] Cyanocobalamin (Vitamin B-12) [Vitamin B-12] 1,000 mcg PO DAILY 06/01/14 [ History] Digoxin [Lanoxin] 1 tab PO DAILY 06/01/14 [History] Folic Acid 1 tab PO DAILY 06/01/14 [History] Losartan Potassium 100 mg PO DAILY 06/01/14 [History] Metoprolol Tartrate 50 mg [Lopressor 50 MG] 50 mg PO BID 06/01/14 [History ] Multivitamin W-Minerals/Lutein [Centrum Silver Tablet] 1 tab PO DAILY 06/01/14 [ History] Aspirin 81 mg PO DAILY 04/02/17 [History] Furosemide [Lasix] 20 mg PO DAILY 04/02/17 [History] Potassium Chloride 10 meq PO BID 04/02/17 [History] Hx Tetanus, Diphtheria Vaccination/Date Given: No Hx Influenza Vaccination/Date Given: No Hx Pneumococcal Vaccination/Date Given: No Immunizations Up to Date: Yes - Review of Systems Constitutional: No Fever, No Chills Eyes: No Symptoms Ears, Nose, & Throat: No Symptoms Respiratory: No Cough, No Dyspnea Cardiac: No Chest Pain, No Edema, No Syncope Abdominal/Gastrointestinal: No Abdominal Pain, No Nausea, No Vomiting, No Diarrhea Genitourinary Symptoms: Frequency, No Dysuria, No Hesitancy, No Incontinence, No Urgency Musculoskeletal: No Symptoms, No Back Pain, No Neck Pain Skin: No Symptoms, No Rash Neurological: No Dizziness, No Focal Weakness, No Sensory Changes Psychological: No Symptoms Endocrine: No Symptoms All Other Systems: Reviewed and Negative - Past Medical History Pertinent Past Medical History: Yes Neurological History: Stroke ENT History: No Pertinent History Cardiac History: Arrhythmia, Hypertension Respiratory History: No Pertinent History Endocrine Medical History: No Pertinent History Musculoskeletal History: No Pertinent History GI Medical History: No Pertinent History History: No Pertinent History Psycho-Social History: No Pertinent History Female Reproductive Disorders: No Pertinent History - Past Surgical History Past Surgical History: Yes Neuro Surgical History: No Pertinent History Cardiac: No Pertinent History Respiratory: No Pertinent History Gastrointestinal: Cholecystectomy Genitourinary: No Pertinent History Musculoskeletal: No Pertinent History Female Surgical History: No Pertinent History - Social History Smoking Status: Never smoker Exposure to second hand smoke: No Drug Use: none Patient Lives Alone: No - Female History Hx Last Menstrual Period: post Hx Now: No - Nursing Vital Signs Nursing Vital Signs: Initial Vital Signs Temperature 97.0 F 12/29/17 13:54 Pulse Rate 62 12/29/17 13:54 Respiratory Rate 18 12/29/17 13:54 Blood Pressure 179/68 12/29/17 13:54 O2 Sat by Pulse Oximetry 98 12/29/17 13:54 Pain Scale Pain Intensity 0 - Physical Exam General Appearance: no apparent distress, alert Eye Exam: PERRL/EOMI, eyes nml inspection Ears, Nose, Throat Exam: normal ENT inspection, TMs normal, pharynx normal, moist mucous membranes Neck Exam: normal inspection, non-tender, supple, full range of motion Respiratory Exam: normal breath sounds, lungs clear, No respiratory distress Cardiovascular Exam: regular rate/rhythm, normal heart sounds, normal peripheral pulses Gastrointestinal/Abdomen Exam: soft, normal bowel sounds, No tenderness, No mass Back Exam: normal inspection, normal range of motion, No CVA tenderness, No vertebral tenderness Extremity Exam: normal inspection, normal range of motion, pelvis stable Neurologic Exam: alert, oriented x 3, cooperative, normal mood/affect, nml cerebellar function, nml station & gait, sensation nml, other (bilateral +5/5 with upper extremity strength and +4/5 with lower extremity elevation.), No motor deficits Skin Exam: normal color, warm, dry, No rash Lymphatic Exam: No adenopathy SpO2: 98 Oxygen Delivery: Room Air - Course Nursing assessment & vital signs reviewed: Yes EKG Interpreted by Me: RATE (55), Sinus Rhythm, NORMAL AXIS, Left Bundle Branch Block Ordered Tests: Active Orders 24 hr Category Date Time Status ACCUCHECK [Accucheck] STAT Care 12/29/17 16:33 Active Accucheck STAT Care 12/29/17 15:27 Active EKG-ER Only STAT Care 12/29/17 14:11 Active IV Insertion STAT Care 12/29/17 15:27 Active CBC W DIFF Stat Lab 12/29/17 14:29 Completed CMP Stat Lab 12/29/17 14:29 Completed CULTURE,URINE Stat Lab 12/29/17 15:30 Received Manual Differential NC Stat Lab 12/29/17 14:29 Completed UA W/ MICROSCOPIC Stat Lab 12/29/17 15:30 Completed Medication Summary Generic Name Dose Route Start Last Admin Trade Name Freq PRN Reason Stop Dose Admin Insulin Human Regular 15 unit 12/29/17 16:41 Novolin R IV 12/29/17 16:42 STAT ONE Discontinued Medications Generic Name Dose Route Start Last Admin Trade Name Freq PRN Reason Stop Dose Admin Sodium Chloride 500 mls @ 999 mls/hr 12/29/17 15:27 12/29/17 15:56 Sodium Chloride 0.9% 1000 Ml IV 12/29/17 15:57 999 mls/hr .Q31M STA Administration Sodium Chloride Confirm 12/29/17 15:53 Sodium Chloride 0.9% 500 Ml Administered 12/29/17 15:54 Dose 500 mls @ ud IV .STK-MED ONE Sodium Chloride Confirm 12/29/17 15:56 Sodium Chloride 0.9% 1000 Ml Administered 12/29/17 15:57 Dose 1,000 mls @ ud .ROUTE .STK-MED ONE Insulin Human Regular 10 unit 12/29/17 15:27 12/29/17 15:56 Novolin R IV 12/29/17 15:28 10 unit STAT ONE Administration Insulin Human Regular Confirm 12/29/17 15:53 Novolin R Administered 12/29/17 15:54 Dose 10 unit .ROUTE .[facility] Lab/Rad Data: Laboratory Result Diagrams 12/29/17 14:29 12/29/17 14:29 Laboratory Results 12/29/17 12/29/17 12/29/17 Range/Units 15:30 14:29 14:29 WBC 7.8 (4.0-10.5) K/mm3 RBC 5.28 (4.1-5.4) M/mm3 Hgb 15.4 (12.0-16.0) gm/dl Hct 49.0 H (35-47) % MCV 92.8 (78-100) fl MCH 29.2 (26-32) pg MCHC 31.4 L (32-36) g/dl RDW 13.9 (11.5-14.0) % Plt Count 189 (150-450) K/mm3 MPV 10.8 H (6-9.5) fl Segmented Neutrophils 85 H (36.0-66.0) % Band Neutrophils 2 (0.0-2.0) % Lymphocytes (Manual) 11 L (24-44) % Monocytes (Manual) 2 (0.0-12.0) % Differential Comment NORMAL Platelet Estimate NORMAL (NORMAL) Sodium 131 L (137-145) mmol/L Potassium 4.8 (3.5-5.1) mmol/L Chloride 95 L (98-107) mmol/L Carbon Dioxide 19 L (22-30) mmol/L Anion Gap 21.7 H (5-15) MEQ/L BUN 26 H (7-17) mg/dL Creatinine 1.18 H (0.52-1.04) mg/dL Estimated GFR 46 ML/MIN Glucose 831 H (74-106) mg/dL Calcium 10.1 (8.4-10.2) mg/dL Total Bilirubin 1.10 (0.2-1.3) mg/dL AST 27 (14-36) U/L ALT 25 (0-35) U/L Alkaline Phosphatase 89 (38-126) U/L Serum Total Protein 6.3 (6.3-8.2) gm/dL Albumin 3.8 (3.5-5.0) g/dL Ur Collection Type VOID Urine Color YELLOW (YELLOW) Urine Appearance CLEAR (CLEAR) Urine pH 7.0 (5-6) Ur Specific Wheeler 1.005 (1.005-1.025) Urine Protein TRACE (Negative) Urine Ketones NEGATIVE (NEGATIVE) Urine Blood 5-10 (0-5) Ruddy/ul Urine Nitrite NEGATIVE (NEGATIVE) Urine Bilirubin NEGATIVE (NEGATIVE) Urine Urobilinogen NORMAL (0-1) mg/dL Ur Leukocyte Esterase NEGATIVE (NEGATIVE) Urine Microscopic RBC 0-2 (0-2) /HPF Ur Epithelial Cells RARE (FEW) /HPF Urine Bacteria FEW (NEGATIVE) /HPF Urine Culture Reflexed YES (NO) Urine Glucose 1000 (NEGATIVE) mg/dL Specimen Received 12/29/17 1530 - Progress Progress: improved Progress Note: Patient with blood glucose of 831. This is new onset diabetes. Patient was given normal saline 500 mL bolus along with insulin IV 10 units. We will recheck blood glucose in approximately an hour to determine effectiveness of treatment. 12/29/17 15:50 12/29/17 16:42 another Accu-Chek was performed and showed blood glucose to be greater then 600. We will give another insulin [address] Scott was notified about patient and he agrees to admit patient for further care. Discussed with : Joy (notified about patient and agrees to further care) Will see patient in: office Counseled pt/family regarding: lab results, diagnosis - Departure Time of Disposition: 16:43 Departure Disposition: Observation Clinical Impression: New onset type 2 diabetes mellitus Condition: Stable Critical Care Time: No Referrals: PO SCOTT MD [Primary Care Provider] -
[2017-12-29 14:36] LABS: Hemoglobin 15.4 gm/dl (12.0-16.0); Mean Cell Volume 92.8 fl (78-100); Mean Corpuscular Hemoglobin 29.2 pg (26-32); Mean Corpuscular Hgb Concent. 31.4 g/dl (32-36); Mean Platelet Volume 10.8 fl (6-9.5); Platelet Count 189 K/mm3 (150-450); Red Blood Count 5.28 M/mm3 (4.1-5.4); Red Cell Distribution Width 13.9 % (11.5-14.0); White Blood Count 7.8 K/mm3 (4.0-10.5)
[2017-12-29 15:06] LABS: ALBUMIN 3.8 g/dL (3.5-5.0); ANION GAP 21.7 MEQ/L (5-15); BILIRUBIN,TOTAL 1.1 mg/dL (0.2-1.3); Calcium 10.1 mg/dL (8.4-10.2); Creatinine 1 1.18 mg/dL (0.52-1.04); Potassium 4.8 mmol/L (3.5-5.1); Total Protein 6.3 gm/dL (6.3-8.2)
[2017-12-29] MEDS ORDERED: NovoLIN R IV ONE ×2 (15:27→16:41)
[2017-12-29 15:45] LABS: Appearance CLEAR (CLEAR); Bacteria FEW /HPF (NEGATIVE); Bilirubin NEGATIVE (NEGATIVE); Epithelial Cells RARE /HPF (FEW); Glucose 1000 mg/dL (NEGATIVE); Ketones NEGATIVE (NEGATIVE); Leukocyte Esterase NEGATIVE (NEGATIVE); Nitrite NEGATIVE (NEGATIVE); Protein,Urine Dip TRACE (Negative); Specific Gravity 1.005 (1.005-1.025); Urobilinogen NORMAL mg/dL (0-1)
[2017-12-29] MEDS ORDERED: Sodium Chloride 0.9% 500 ML 0 ML IV ONE (15:53)
[2017-12-29] MEDS ORDERED: NovoLIN R ONE ×2 (15:53→16:51)
[2017-12-29 15:55] LABS: BAND 2 % (0.0-2.0); Lymphocytes 11 % (24-44); Monocyte 2 % (0.0-12.0); Neutrophils 85 % (36.0-66.0); Platelet Estimate NORMAL (NORMAL); Total Cells Counted 100
[2017-12-29] MEDS ORDERED: Sodium Chloride 0.9% 1000 ML 1,000 ML ONE (15:56)
[2017-12-29] MEDS ORDERED: NovoLOG Insulin SQ PRN (16:46)
[2017-12-29] MEDS ORDERED: TYLENOL 325 MG PO PRN (16:46)
[2017-12-29] MEDS ORDERED: Sodium Chloride 0.9% 1000 ML 1,000 ML IV SCH ×2 (17:00→18:15)
[2017-12-29] MEDS ORDERED: NovoLOG Insulin SQ ONE (22:00)
[2017-12-29] MEDS ORDERED: Lantus Insulin ONE (22:14)
[2017-12-29] MEDS: ELIQUIS PO SCH (22:17)
[2017-12-29] MEDS: NovoLOG Insulin SQ PRN (23:50)
[2017-12-30] MEDS: NovoLOG Insulin SQ PRN ×3 (04:36→12:03)
[2017-12-30 06:09] LABS: ANION GAP 10.5 MEQ/L (5-15); BLOOD UREA NITROGEN 22 mg/dL (7-17); CHLORIDE 103 mmol/L (98-107); Calcium 9.3 mg/dL (8.4-10.2); Carbon Dioxide 24 mmol/L (22-30); Creatinine 1 0.71 mg/dL (0.52-1.04); Glucose 189 mg/dL (74-106); Potassium 3.4 mmol/L (3.5-5.1); SODIUM 134 mmol/L (137-145)
[2017-12-30] MEDS ORDERED: Lanoxin 0.125MG TABLET PO SCH (10:00)
[2017-12-30] MEDS ORDERED: ECOTRIN 81 MG PO SCH (10:00)
[2017-12-30] MEDS ORDERED: NON-FORMULARY ITEM (Amlodipine Besylate [Norvasc] 2.5 MG) PO SCH (10:00)
[2017-12-30] MEDS ORDERED: NON-FORMULARY ITEM (Cholecalciferol (Vitamin D3) [Vitamin D3] 1,000 UNIT) PO SCH (10:00)
[2017-12-30] MEDS ORDERED: NON-FORMULARY ITEM (Losartan Potassium [Losartan Potassium] 100 MG) PO SCH (10:00)
[2017-12-30] MEDS ORDERED: BABY ASPIRIN 81 MG CHEW PO SCH (10:00)
[2017-12-30] MEDS ORDERED: Cozaar 50 MG PO SCH (10:00)
[2017-12-30] MEDS ORDERED: FOLATE 1 MG PO SCH (10:00)
[2017-12-30] MEDS ORDERED: Protonix 20MG Tablet PO SCH (10:00)
[2017-12-30] MEDS ORDERED: NORVASC 5 MG PO SCH (10:00)
[2017-12-30] MEDS ORDERED: VITAMIN D PO SCH (10:00)
[2017-12-30] MEDS: ELIQUIS PO SCH (10:50)
--- NOTE | 2017-12-30 12:01 | PCM.SSS ---
History of Present Illness - Chief Complaint Chief Complaint: high blood sugar for unknown duration History of Present Illness: is a 87 year old female.patient was [facility] for evaluation of generalized weakness. Patient's with previous history of CVA, who had been having generalized weakness for the past 7 days. Patient states that she is weak all over without any focal deficits. Patient does ambulate with walker and noticed decrease stamina. Patient also notes she's been having more thirst and urinary frequency, but no dysuria or urgency. Patient denies any headaches, blurred vision, dizziness, chest pain, palpitation, abdominal pain, fever, chills, cough, shortness of breath or any illness. Patient also states that "I don't know why I am in the ER." On further evaluation patient had very high blood sugar and it is new finding so patient is admitted as observation. - Review of Systems Constitutional: No Fever, No Chills Eyes: No Symptoms Ears, Nose, & Throat: No Symptoms Respiratory: No Cough, No Short Of Breath Cardiac: No Chest Pain, No Edema, No Syncope Abdominal/Gastrointestinal: No Abdominal Pain, No Nausea, No Vomiting, No Diarrhea Genitourinary Symptoms: No Dysuria Musculoskeletal: No Back Pain, No Neck Pain Skin: No Rash Neurological: No Dizziness, No Focal Weakness, No Sensory Changes Psychological: No Symptoms Endocrine: No Symptoms Hematologic/Lymphatic: No Symptoms Immunological/Allergic: No Symptoms Medications & Allergies Home Medications: Home Medication List Amlodipine Besylate [Norvasc] 2.5 mg PO DAILY 12/29/17 [History Confirmed ] Apixaban [Eliquis] 2.5 mg PO BID 12/29/17 [History Confirmed 12/29/17] Aspirin 81 mg PO DAILY 12/29/17 [History Confirmed 12/29/17] Cholecalciferol (Vitamin D3) [Vitamin D3] 1,000 unit PO DAILY 12/29/17 [History Confirmed 12/29/17] Digoxin 0.125 mg Tablet [Lanoxin 0.125MG TABLET] 0.125 mg PO DAILY [History Confirmed 12/29/17] Folic Acid 1 mg PO DAILY 12/29/17 [History Confirmed 12/29/17] Losartan Potassium 100 mg PO DAILY 12/29/17 [History Confirmed 12/29/17] Pantoprazole 20 mg [Protonix 20MG Tablet] 20 mg PO DAILY 12/29/17 [ History Confirmed 12/29/17] Insulin Glargine [Lantus Insulin] 20 unit SQ HS 30 Days #10 unit 12/30/17 [ Rx] Metformin HCl Xr 500 mg [Glucophage XR 500 MG] 500 mg PO EVENING MEAL #30 tab 12/30/17 [Rx] Allergies/Adverse Reactions: Allergies Allergy/AdvReac Type Severity Reaction Status Date / Time No Known Drug Allergies Allergy Verified 12/29/17 14:00 - Past Medical History Past Medical History: Yes Neurological History: Stroke ENT History: No Pertinent History Cardiac History: Arrhythmia, Hypertension Respiratory History: No Pertinent History Endocrine Medical History: No Pertinent History Musculoskelatal History: No Pertinent History GI Medical History: No Pertinent History, Gallbladder Disease History: No Pertinent History Pyscho-Social History: No Pertinent History Reproductive Disorders: No Pertinent History Comment: A fib, DVT - Female History Hx Last Menstrual Period: post Are you now?: No - Past Surgical History Past Surgical History: Yes Neuro Surgical History: No Pertinent History Cardiac History: No Pertinent History Respiratory Surgery: No Pertinent History GI Surgical History: Cholecystectomy Genitourinary Surgical Hx: No Pertinent History Musculskeletal Surgical Hx: No Pertinent History Female Surgical History: No Pertinent History - Social History Smoking Status: Never smoker Exposure to second hand smoke: No Alcohol: None Drug Use: none - Physical Exam Vital Signs: Vital Signs - 24 hr Temp Pulse Resp BP BP Pulse Ox 12/30/17 11:11 97.6 F 97 H 20 147/87 98 12/30/17 10:47 62 148/67 12/30/17 07:21 98.2 F 57 L 18 148/67 95 12/30/17 02:00 98.9 F 58 L 20 174/75 95 12/29/17 20:00 98.4 F 57 L 18 163/72 95 12/29/17 18:02 98.3 F 57 L 16 191/76 94 L 12/29/17 17:41 98.3 F 57 L 16 191/76 94 L 12/29/17 16:46 60 16 166/61 97 12/29/17 16:44 98 12/29/17 15:14 52 L 16 186/89 99 12/29/17 13:54 97.0 F 62 18 179/68 98 General Appearance: no apparent distress, alert Neurologic Exam: alert, oriented x 3, cooperative, normal mood/affect, nml cerebellar function, nml station & gait, sensation nml, No motor deficits Eye Exam: PERRL/EOMI, eyes nml inspection Ears, Nose, Throat Exam: normal ENT inspection, TMs normal, pharynx normal, moist mucous membranes Neck Exam: normal inspection, non-tender, supple, full range of motion Respiratory Exam: normal breath sounds, lungs clear, No respiratory distress Cardiovascular Exam: regular rate/rhythm, normal heart sounds, normal peripheral pulses Gastrointestinal/Abdomen Exam: soft, normal bowel sounds, No tenderness, No mass Back Exam: normal inspection, normal range of motion, No CVA tenderness, No vertebral tenderness Extremity Exam: normal inspection, normal range of motion, pelvis stable Skin Exam: normal color, warm, dry, No rash Lymphatic Exam: No adenopathy Results - Labs Lab/Micro Results: Accuchecks Date 12/30/17 Date 12/29/17 Date 12/29/17 Time 04:00 Time 23:55 Time 20:00 Accucheck Value: 162 Accucheck Value: 297 Lab Results-Last 24 Hours 12/29/17 12/29/17 12/30/17 Range/Units 21:20 Unknown 05:20 Sodium 134 L (137-145) mmol/L Potassium 3.4 L (3.5-5.1) mmol/L Chloride 103 (98-107) mmol/L Carbon Dioxide 24 (22-30) mmol/L Anion Gap 10.5 (5-15) MEQ/L BUN 22 H (7-17) mg/dL Creatinine 0.71 (0.52-1.04) mg/dL Estimated GFR > 60 ML/MIN Glucose 587 H 189 H (74-106) mg/dL Hemoglobin A1c > 14.00 H (4.5-6.0) % Calcium 9.3 (8.4-10.2) mg/dL Accuchecks Date 12/30/17 Date 12/29/17 Date 12/29/17 Time 04:00 Time 23:55 Time 20:00 Accucheck Value: 162 Accucheck Value: 297 Assessment/Plan (1) New onset type 2 diabetes mellitus Current Visit: Yes Status: Acute Code(s): E11.9 - TYPE 2 DIABETES MELLITUS WITHOUT COMPLICATIONS (2) Atrial fibrillation Current Visit: Yes Status: Acute Qualifiers: Atrial fibrillation type: chronic Qualified Code(s): I48.2 - Chronic atrial fibrillation Code(s): I48.91 - UNSPECIFIED ATRIAL FIBRILLATION (3) CAD (coronary artery disease) Current Visit: Yes Status: Chronic Qualifiers: Coronary Disease-Associated Artery/Lesion type: [place] artery Associated angina: without angina Code(s): I25.10 - ATHSCL HEART DISEASE OF [place] CORONARY ARTERY W/O ANG PCTRS (4) Hyperglycemia due to type 2 diabetes mellitus Current Visit: Yes Status: Acute Qualifiers: 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: unspecified termite exterminator insulin use status Qualified Code(s): E11.65 - Type 2 diabetes mellitus with hyperglycemia Code(s): E11.65 - TYPE 2 DIABETES MELLITUS WITH HYPERGLYCEMIA Hospital Summary - Hospital Course Hospital Course: Chief Complaint Diagnosis New Onset DM Allergies Allergy/AdvReac Type Severity Reaction Status Date / Time No Known Drug Allergies Allergy Verified 12/29/17 14:00 Vital Signs (Last 24 hours) Temp Pulse Resp BP BP Pulse Ox 12/30/17 11:11 97.6 F 97 H 20 147/87 98 12/30/17 10:47 62 148/67 12/30/17 07:21 98.2 F 57 L 18 148/67 95 12/30/17 02:00 98.9 F 58 L 20 174/75 95 12/29/17 20:00 98.4 F 57 L 18 163/72 95 12/29/17 18:02 98.3 F 57 L 16 191/76 94 L 12/29/17 17:41 98.3 F 57 L 16 191/76 94 L 12/29/17 16:46 60 16 166/61 97 12/29/17 16:44 98 12/29/17 15:14 52 L 16 186/89 99 12/29/17 13:54 97.0 F 62 18 179/68 98 Home Medications Medication Instructions Recorded Confirmed Last Taken Type Amlodipine Besylate [Norvasc] 2.5 mg PO DAILY 12/29/17 12/29/17 12/29/17 History Apixaban [Eliquis] 2.5 mg PO BID 12/29/17 12/29/17 12/29/17 History Aspirin 81 mg PO DAILY 12/29/17 12/29/17 12/29/17 History Cholecalciferol (Vitamin D3) 1,000 unit PO DAILY 12/29/17 12/29/17 12/29/17 History [Vitamin D3] Digoxin 0.125 mg Tablet 0.125 mg PO DAILY 12/29/17 12/29/17 12/29/17 History [Lanoxin 0.125MG TABLET] Folic Acid 1 mg PO DAILY 12/29/17 12/29/17 12/29/17 History Losartan Potassium 100 mg PO DAILY 12/29/17 12/29/17 12/29/17 History Pantoprazole 20 mg [Protonix 20 mg PO DAILY 12/29/17 12/29/17 12/29/17 History 20MG Tablet] Current Medications Generic Name Dose Route Start Last Admin Trade Name Freq PRN Reason Stop Dose Admin Amlodipine Besylate 2.5 mg 12/30/17 10:00 12/30/17 10:50 Norvasc 5 Mg PO 01/29/18 09:59 2.5 mg DAILY MARGI Administration Apixaban 2.5 mg 12/29/17 22:00 12/30/17 10:50 Eliquis PO 01/28/18 21:59 2.5 mg BID MARGI Administration Aspirin 81 mg 12/30/17 10:00 12/30/17 10:50 Ecotrin 81 Mg PO 01/29/18 09:59 81 mg DAILY MARGI Administration Cholecalciferol 1,000 unit 12/30/17 10:00 12/30/17 10:50 Vitamin D PO 01/29/18 09:59 1,000 unit DAILY MARGI Administration Digoxin 0.125 mg 12/30/17 10:00 12/30/17 10:47 Lanoxin 0.125mg Tablet PO 01/29/18 09:59 0.125 mg DAILY MARGI Administration Folic Acid 1 mg 12/30/17 10:00 12/30/17 10:50 Folate 1 Mg PO 01/29/18 09:59 1 mg DAILY MARGI Administration Sodium Chloride 1,000 mls @ 75 mls/hr 12/29/17 18:15 12/30/17 01:19 Sodium Chloride 0.9% 1000 Ml IV 01/28/18 18:14 75 mls/hr .[id number] MARGI Administration Insulin Aspart 0 unit 12/29/17 18:01 12/30/17 08:11 Novolog Insulin SQ 01/28/18 18:00 7 unit UD PRN Administration HYPERGLYCEMIA Insulin Glargine 20 unit 12/30/17 22:00 12/29/17 22:18 Lantus Insulin SQ 01/29/18 21:59 20 unit HS MARGI Administration Losartan Potassium 100 mg 12/30/17 10:00 12/30/17 10:49 Cozaar 50 Mg PO 01/29/18 09:59 100 mg DAILY MARGI Administration Metformin HCl 500 mg 12/30/17 18:00 Glucophage Xr 500 Mg PO 01/29/18 17:59 EVENING MEAL MARGI Pantoprazole Sodium 20 mg 12/30/17 10:00 12/30/17 10:50 Protonix 20mg Tablet PO 01/29/18 09:59 20 mg DAILY MARGI Administration Discontinued Medications Generic Name Dose Route Start Last Admin Trade Name Freq PRN Reason Stop Dose Admin Acetaminophen 650 mg 12/29/17 16:46 Tylenol 325 Mg PO 01/28/18 16:45 Q4H PRN PRN PAIN AND/OR FEVER Sodium Chloride 500 mls @ 999 mls/hr 12/29/17 15:27 12/29/17 15:56 Sodium Chloride 0.9% 1000 Ml IV 12/29/17 15:57 999 mls/hr .Q31M STA Administration Sodium Chloride Confirm 12/29/17 15:53 Sodium Chloride 0.9% 500 Ml Administered 12/29/17 15:54 Dose 500 mls @ ud IV .STK-MED ONE Sodium Chloride Confirm 12/29/17 15:56 Sodium Chloride 0.9% 1000 Ml Administered 12/29/17 15:57 Dose 1,000 mls @ ud .ROUTE .STK-MED ONE Sodium Chloride 1,000 mls @ 75 mls/hr 12/29/17 17:00 12/29/17 17:05 Sodium Chloride 0.9% 1000 Ml IV 01/28/18 16:59 75 mls/hr .[id number] MARGI Administration Insulin Aspart 0 unit 12/29/17 16:46 Novolog Insulin SQ 01/28/18 16:45 UD PRN HYPERGLYCEMIA Insulin Aspart 20 unit 12/29/17 22:00 12/29/17 22:17 Novolog Insulin SQ 12/29/17 22:01 20 unit ONCE ONE Administration Insulin Glargine Confirm 12/29/17 22:14 Lantus Insulin Administered 12/29/17 22:15 Dose 20 unit .ROUTE .STK-MED ONE Insulin Human Regular 10 unit 12/29/17 15:27 12/29/17 15:56 Novolin R IV 12/29/17 15:28 10 unit STAT ONE Administration Insulin Human Regular Confirm 12/29/17 15:53 Novolin R Administered 12/29/17 15:54 Dose 10 unit .ROUTE .STK-MED ONE Insulin Human Regular 15 unit 12/29/17 16:41 12/29/17 16:51 Novolin R IV 12/29/17 16:42 15 unit STAT ONE Administration Insulin Human Regular Confirm 12/29/17 16:51 Novolin R Administered 12/29/17 16:52 Dose 15 unit .ROUTE .STK-MED ONE Intake & Output (Last 24 hours) 12/28/17 12/29/17 12/30/17 12/31/17 11:59 11:59 11:59 11:59 Intake Total 1640 Output Total 1400 Balance 240 Weight 56.3 kg Microbiology Results (Last 24 hours) 12/29/17 15:30 Urine, Void - Preliminary NO GROWTH TO DATE Laboratory Results (Last 24 hours) 12/30/17 12/29/17 12/29/17 05:20 Unknown 21:20 WBC RBC Hgb Hct MCV MCH MCHC RDW Plt Count MPV Segmented Neutrophils Band Neutrophils Lymphocytes (Manual) Monocytes (Manual) Differential Comment Platelet Estimate Sodium 134 L Potassium 3.4 L Chloride 103 Carbon Dioxide 24 Anion Gap 10.5 BUN 22 H Creatinine 0.71 Estimated GFR > 60 Glucose 189 H 587 H Hemoglobin A1c > 14.00 H Calcium 9.3 Total Bilirubin AST ALT Alkaline Phosphatase Serum Total Protein Albumin Ur Collection Type Urine Color Urine Appearance Urine pH Ur Specific [place] Urine Protein Urine Ketones Urine Blood Urine Nitrite Urine Bilirubin Urine Urobilinogen Ur Leukocyte Esterase Urine Microscopic RBC Ur Epithelial Cells Urine Bacteria Urine Culture Reflexed Urine Glucose Specimen Received 12/29/17 12/29/17 12/29/17 15:30 14:29 14:29 WBC 7.8 RBC 5.28 Hgb 15.4 Hct 49.0 H MCV 92.8 MCH 29.2 MCHC 31.4 L RDW 13.9 Plt Count 189 MPV 10.8 H Segmented Neutrophils 85 H Band Neutrophils 2 Lymphocytes (Manual) 11 L Monocytes (Manual) 2 Differential Comment NORMAL Platelet Estimate NORMAL Sodium 131 L Potassium 4.8 Chloride 95 L Carbon Dioxide 19 L Anion Gap 21.7 H BUN 26 H Creatinine 1.18 H Estimated GFR 46 Glucose 831 H Hemoglobin A1c Calcium 10.1 Total Bilirubin 1.10 AST 27 ALT 25 Alkaline Phosphatase 89 Serum Total Protein 6.3 Albumin 3.8 Ur Collection Type VOID Urine Color YELLOW Urine Appearance CLEAR Urine pH 7.0 Ur Specific [place] 1.005 Urine Protein TRACE Urine Ketones NEGATIVE Urine Blood 5-10 Urine Nitrite NEGATIVE Urine Bilirubin NEGATIVE Urine Urobilinogen NORMAL Ur Leukocyte Esterase NEGATIVE Urine Microscopic RBC 0-2 Ur Epithelial Cells RARE Urine Bacteria FEW Urine Culture Reflexed YES Urine Glucose 1000 Specimen Received 12/29/17 1530 Orders (Last 24 hours) Category Date Time Status Up With Assistance ROUTINE Activity 12/29/17 16:46 Inactive Up With Assistance ROUTINE Activity 12/29/17 18:01 Active ACCUCHECK [Accucheck] STAT Care 12/29/17 16:33 Completed Accucheck Q4H Care 12/29/17 18:01 Active Accucheck Q6H Care 12/29/17 16:46 Inactive Accucheck STAT Care 12/29/17 15:27 Completed Call Admit Doctor for Orders ON ADMISSION Care 12/29/17 16:48 Inactive Call Admit Doctor for Orders ON ADMISSION Care 12/29/17 18:01 Active Code Status Order ROUTINE Care 12/29/17 16:47 Inactive Code Status Order ROUTINE Care 12/29/17 18:01 Active EKG-ER Only STAT Care 12/29/17 14:11 Completed IV Care Q6H Care 12/29/17 16:47 Inactive IV Care Q6H Care 12/29/17 18:01 Active IV Insertion STAT Care 12/29/17 15:[address] in Observation ROUTINE Care 12/29/17 16:[address] in Observation ROUTINE Care 12/29/17 18:01 Active Vital Signs Q6H Care 12/29/17 16:46 Inactive Vital Signs Q6H Care 12/29/17 18:01 Active Weight,Daily 0600 Care 12/29/17 16:46 Inactive 1800 Calorie ADA Diet 12/30/17 Breakfast Active Discharge Planning,Consult Routine Discharge 12/30/17 Active BMP AM.LAB Lab 12/30/17 05:20 Completed Beta-Hydroxybutyrate, Serum Stat Lab 12/29/17 14:00 Received CBC W DIFF Stat Lab 12/29/17 14:29 Completed CMP Stat Lab 12/29/17 14:29 Completed CULTURE,URINE Stat Lab 12/29/17 15:30 Results Glucose Stat Lab 12/29/17 21:20 Completed Manual Differential NC Stat Lab 12/29/17 14:29 Completed UA W/ MICROSCOPIC Stat Lab 12/29/17 15:30 Completed Acetaminophen 325 mg [Tylenol 325 mg] Med 12/29/17 16:46 Discontinued 650 mg PO Q4H PRN PRN Amlodipine Besylate 5 mg [Norvasc 5 mg] Med 12/30/17 10:00 Active 2.5 mg PO DAILY Apixaban [Eliquis] Med 12/29/17 22:00 Active 2.5 mg PO BID Aspirin EC 81 mg [Ecotrin 81 mg] Med 12/30/17 10:00 Active 81 mg PO DAILY Cholecalciferol (Vitamin D3) [Vitamin D] Med 12/30/17 10:00 Active 1,000 unit PO DAILY Digoxin 0.125 mg Tablet [Lanoxin 0.125MG TABLET] Med 12/30/17 10:00 Active 0.125 mg PO DAILY Folic Acid 1 mg [Folate 1 mg] Med 12/30/17 10:00 Active 1 mg PO DAILY Insulin Aspart [NovoLOG Insulin] Med 12/29/17 22:00 Discontinued 20 unit SQ ONCE ONE Insulin Aspart [NovoLOG Insulin] Med 12/29/17 16:46 Discontinued See Dose Instructions SQ UD PRN Insulin Aspart [NovoLOG Insulin] Med 12/29/17 18:01 Active See Dose Instructions SQ UD PRN Insulin Glargine [Lantus Insulin] Med 12/29/17 22:14 Discontinued 20 unit .ROUTE .STK-MED ONE Insulin Glargine [Lantus Insulin] Med 12/30/17 22:00 Active 20 unit SQ HS Insulin Regular, Human [NovoLIN R] Med 12/29/17 15:53 Discontinued 10 unit .ROUTE .STK-MED ONE Insulin Regular, Human [NovoLIN R] Med 12/29/17 15:27 Discontinued 10 unit IV STAT ONE Insulin Regular, Human [NovoLIN R] Med 12/29/17 16:51 Discontinued 15 unit .ROUTE .STK-MED ONE Insulin Regular, Human [NovoLIN R] Med 12/29/17 16:41 Discontinued 15 unit IV STAT ONE Losartan Potassium 50 mg [Cozaar 50 MG] Med 12/30/17 10:00 Active 100 mg PO DAILY Metformin HCl Xr 500 mg [Glucophage XR 500 MG] Med 12/30/17 18:00 Active 500 mg PO EVENING MEAL NaCl 0.9% 1000 ml [Sodium Chloride 0.9% 1000 ML] 1,000 Med 12/29/17 15:56 Discontinued ml .ROUTE UD NaCl 0.9% 1000 ml [Sodium Chloride 0.9% 1000 ML] 1,000 Med 12/29/17 17:00 Discontinued ml IV 75 mls/hr NaCl 0.9% 1000 ml [Sodium Chloride 0.9% 1000 ML] 1,000 Med 12/29/17 18:15 Active ml IV 75 mls/hr NaCl 0.9% 1000 ml [Sodium Chloride 0.9% 1000 ML] 500 ml Med 12/29/17 15:27 Discontinued IV 999 mls/hr NaCl 0.9% 500 ml [Sodium Chloride 0.9% 500 ML] 500 ml Med 12/29/17 15:53 Discontinued IV UD Pantoprazole 20 mg [Protonix 20MG Tablet] Med 12/30/17 10:00 Active 20 mg PO DAILY Patient Care Notes (Last 24 hours) 12/30/17 10:56 Case Management Note by Laura Jaquez Talked with MARIA DOLORES MORRELL regarding needs at time of discharge. Patient reports residing at [facility] with her . She plans on returning to there upon discharge, however she will need assistance with insulin administration as she is newly diagnosed diabetic. Home Health referral made and documents faxed to [facility] Home Health. Important message from Medicare signed. Patient verbalized understanding. Forms placed on chart. Will continue to follow for all Discharge needs. Initialized on 12/30/17 10:56 - END OF NOTE 12/29/17 22:03 Nursing Note by Gissel Chris pt blood glucose 587. Dr Scott notified, new orders received Initialized on 12/29/17 22:03 - END OF NOTE - Vitals & Intake/Output Vital Signs: Vital Signs Temperature 97.6 F 12/30/17 11:11 Pulse Rate 97 H 12/30/17 11:11 Respiratory Rate 20 12/30/17 11:11 Blood Pressure 147/87 12/30/17 11:11 O2 Sat by Pulse Oximetry 98 12/30/17 11:11 Intake & Output: Intake & Output 12/27/17 12/28/17 12/29/17 12/30/17 10:59 11:59 11:59 11:59 Intake Total 1640 Output Total 1400 Balance 240 Weight 56.3 kg - Lab Result Diagrams: 12/29/17 14:29 12/30/17 05:20 Lab Results-Last 24 Hrs: Accuchecks Date 12/30/17 Date 12/29/17 Date 12/29/17 Time 04:00 Time 23:55 Time 20:00 Accucheck Value: 162 Accucheck Value: 297 Lab Results-Last 24 Hours 12/29/17 12/29/17 12/30/17 Range/Units 21:20 Unknown 05:20 Sodium 134 L (137-145) mmol/L Potassium 3.4 L (3.5-5.1) mmol/L Chloride 103 (98-107) mmol/L Carbon Dioxide 24 (22-30) mmol/L Anion Gap 10.5 (5-15) MEQ/L BUN 22 H (7-17) mg/dL Creatinine 0.71 (0.52-1.04) mg/dL Estimated GFR > 60 ML/MIN Glucose 587 H 189 H (74-106) mg/dL Hemoglobin A1c > 14.00 H (4.5-6.0) % Calcium 9.3 (8.4-10.2) mg/dL Micro Results-Entire Visit: Accuchecks Date 12/30/17 Date 12/29/17 Date 12/29/17 Time 04:00 Time 23:55 Time 20:00 Accucheck Value: 162 Accucheck Value: 297 - Discharge Discharge Date: 12/30/17 Disposition: Home Health @ [facility] Condition: Stable Prescriptions: New Metformin HCl Xr 500 mg [Glucophage XR 500 MG] 500 mg PO EVENING MEAL # 30 tab Insulin Glargine [Lantus Insulin] 20 unit SQ HS 30 Days #10 unit Continue Pantoprazole 20 mg [Protonix 20MG Tablet] 20 mg PO DAILY Losartan Potassium 100 mg PO DAILY Folic Acid 1 mg PO DAILY Digoxin 0.125 mg Tablet [Lanoxin 0.125MG TABLET] 0.125 mg PO DAILY Cholecalciferol (Vitamin D3) [Vitamin D3] 1,000 unit PO DAILY Aspirin 81 mg PO DAILY Apixaban [Eliquis] 2.5 mg PO BID Amlodipine Besylate [Norvasc] 2.5 mg PO DAILY Follow up with: PO SCOTT MD [Primary Care Provider] - 1 Week
[2017-12-30 16:35] VITALS: BP 118/74; PULSE 78; O2SAT 97
[2017-12-30] MEDS ORDERED: Glucophage XR 500 MG PO SCH (18:00)
[2017-12-30] MEDS ORDERED: Lantus Insulin SQ SCH (22:00)
== END 2017-12-30 18:35 | disposition home health service (06) ==
LOC: ED 13:53 → MED SURG 17:35
PROVIDERS: ADMIT General Practice; ATTEND General Practice
DX: E11.65 Type 2 diabetes mellitus with hyperglycemia (principal); I48.2 Chronic atrial fibrillation; I25.10 Atherosclerotic heart disease of native coronary artery without angina pectoris; Z86.73 Personal history of transient ischemic attack (TIA), and cerebral infarction without residual deficits; Z79.899 Other long term (current) drug therapy
CPT/HCPCS: 36000; 36415; 80048; 80053; 81000; 82010; 82947; 82962; 83036; 85025; 87086; 93005; 96360; 96361; 96372; 96374; 96376; 99285; G0378; A9270-GY

== ENCOUNTER 2018-12-26 08:48 | Observation (INO) | payer MEDICARE ==
[2018-12-26 09:09] LABS: BASOPHIL % 0.5 % (0.0-0.4); Basophil (Absolute #) 0.05 (0-0.4); Eosinophil % 4.4 % (0.00-5.0); Eosinophil (Absolute #) 0.47 (0-0.5); Granulocyte Absolute (ANC) 7.83 (1.4-6.9); Granulocytes % 74.1 % (36.0-66.0); Hematocrit 45.6 % (35-47); Hemoglobin 14.3 gm/dl (12.0-16.0); Lymphocyte (Absolute #) 1.41 (1.0-4.6); Lymphocytes % 13.3 % (24.0-44.0); Mean Cell Volume 89.6 fl (78-100); Mean Corpuscular Hemoglobin 28.1 pg (26-32); Mean Corpuscular Hgb Concent. 31.4 g/dl (32-36); Mean Platelet Volume 10.4 fl (6-9.5); Monocyte (Absolute #) 0.81 (0.0-1.3); Monocytes % 7.7 % (0.0-12.0); Platelet Count 122 K/mm3 (150-450); Red Blood Count 5.09 M/mm3 (4.1-5.4); Red Cell Distribution Width 14.3 % (11.5-14.0); White Blood Count 10.6 K/mm3 (4.0-10.5)
[2018-12-26] MEDS: Sodium Chloride 0.9% 1000 ML 1,000 ML IV SCH ×2 (09:25→20:23)
[2018-12-26 09:29] LABS: ALBUMIN 4.3 g/dL (3.5-5.0); ANION GAP 15.9 MEQ/L (5-15); BILIRUBIN,TOTAL 1.8 mg/dL (0.2-1.3); Calcium 10.5 mg/dL (8.4-10.2); Creatinine 1 1.02 mg/dL (0.52-1.04); MAGNESIUM 1.6 mg/dL (1.6-2.3); Potassium 4.4 mmol/L (3.5-5.1); Total Protein 7.1 g/dL (6.3-8.2)
--- NOTE | 2018-12-26 09:41 | ERPHSYRPT ---
- History of Present Illness Time Seen by Provider: 12/26/18 09:40 Source: patient, EMS Exam Limitations: no limitations Patient Subjective Stated Complaint: states has been feeling weak for a few days. fell one week ago. now having pain to middle of back. denies vomiting. is having some nausea. diarrhea intermittently for one week. hx of afib. is also diabetic and has had some issues this past week with low sugar. Triage Nursing Assessment: to room per ems cot. skin w/d, color normal, resp easy. Physician History: states has been feeling weak for a few days. fell one week ago. now having pain to middle of back. denies vomiting. is having some nausea. diarrhea intermittently for one week. hx of afib. is also diabetic and has had some issues this past week with low sugar.Patient is alert awake oriented to time place person in ER Associated Symptoms: denies symptoms Allergies/Adverse Reactions: No Known Drug Allergies Allergy (Verified 12/26/18 09:01) Home Medications: Amlodipine Besylate [Norvasc] 2.5 mg PO DAILY 12/29/17 [History] Apixaban [Eliquis] 2.5 mg PO BID 12/29/17 [History] Aspirin 81 mg PO DAILY 12/29/17 [History] Cholecalciferol (Vitamin D3) [Vitamin D3] 1,000 unit PO DAILY 12/29/17 [History] Digoxin 0.125 mg Tablet [Lanoxin 0.125MG TABLET] 0.0625 mg PO DAILY [History] Folic Acid 1 mg PO DAILY 12/29/17 [History] Losartan Potassium 100 mg PO DAILY 12/29/17 [History] Pantoprazole 20 mg [Protonix 20MG Tablet] 20 mg PO HS 12/29/17 [History] Glimepiride 1 mg PO DAILY 12/26/18 [History] Hydrocodone Bit/Acetaminophen [Hydrocodon-Acetaminophen 5-325] 1 each PO Q6HPRN PRN 12/26/18 [History] Metoprolol Tartrate 50 mg [Lopressor 50 MG] 50 mg PO DAILY 12/26/18 [ History] Hx Tetanus, Diphtheria Vaccination/Date Given: No Hx Influenza Vaccination/Date Given: Yes Hx Pneumococcal Vaccination/Date Given: Yes - Review of Systems Constitutional: Weakness, No Fever, No Chills Eyes: No Symptoms Ears, Nose, & Throat: No Symptoms Respiratory: No Cough, No Dyspnea Cardiac: No Chest Pain, No Edema, No Syncope Abdominal/Gastrointestinal: No Abdominal Pain, No Nausea, No Vomiting, No Diarrhea Genitourinary Symptoms: No Dysuria Musculoskeletal: No Back Pain, No Neck Pain Skin: No Rash Neurological: No Dizziness, No Focal Weakness, No Sensory Changes Psychological: No Symptoms Endocrine: No Symptoms All Other Systems: Reviewed and Negative - Past Medical History Pertinent Past Medical History: Yes Neurological History: Stroke ENT History: No Pertinent History Cardiac History: Arrhythmia, Hypertension Respiratory History: No Pertinent History Endocrine Medical History: No Pertinent History Musculoskeletal History: No Pertinent History GI Medical History: No Pertinent History, Gallbladder Disease History: No Pertinent History Psycho-Social History: No Pertinent History Female Reproductive Disorders: No Pertinent History Other Medical History: A fib, DVT - Past Surgical History Past Surgical History: Yes Neuro Surgical History: No Pertinent History Cardiac: No Pertinent History Respiratory: No Pertinent History Gastrointestinal: Cholecystectomy Genitourinary: No Pertinent History Musculoskeletal: No Pertinent History Female Surgical History: No Pertinent History - Social History Smoking Status: Never smoker Exposure to second hand smoke: Yes Drug Use: none Patient Lives Alone: No - Female History Hx Now: No - Nursing Vital Signs Nursing Vital Signs: Initial Vital Signs Temperature 98 F 12/26/18 08:50 Pulse Rate 121 H 12/26/18 08:50 Respiratory Rate 16 12/26/18 08:50 Blood Pressure 165/90 12/26/18 08:50 O2 Sat by Pulse Oximetry 99 12/26/18 08:50 Pain Scale Pain Intensity 5 - Physical Exam General Appearance: no apparent distress, alert Eye Exam: PERRL/EOMI, eyes nml inspection Ears, Nose, Throat Exam: normal ENT inspection, TMs normal, pharynx normal, moist mucous membranes Neck Exam: normal inspection, non-tender, supple, full range of motion Respiratory Exam: normal breath sounds, lungs clear, No respiratory distress Cardiovascular Exam: regular rate/rhythm, normal heart sounds, normal peripheral pulses Gastrointestinal/Abdomen Exam: soft, normal bowel sounds, No tenderness, No mass Back Exam: normal inspection, normal range of motion, No CVA tenderness, No vertebral tenderness Extremity Exam: normal inspection, normal range of motion, pelvis stable Neurologic Exam: alert, oriented x 3, cooperative, normal mood/affect, nml cerebellar function, nml station & gait, sensation nml, No motor deficits Skin Exam: normal color, warm, dry, No rash Lymphatic Exam: No adenopathy SpO2: 99 - Course Nursing assessment & vital signs reviewed: Yes - Radiology Exams C-Spine X-ray Interpretation: Reviewed by me (no acute fracture, severe arthritic changes) Ordered Tests: Active Orders 24 hr Category Date Time Status Accucheck STAT Care 12/26/18 08:56 Active EKG-ER Only STAT Care 12/26/18 08:56 Active CERVICAL SPINE (2 OR 3 VIEW) Stat Exams 12/26/18 09:41 Taken CBC W DIFF Stat Lab 12/26/18 09:07 Completed CMP Stat Lab 12/26/18 09:07 Completed MAGNESIUM Stat Lab 12/26/18 09:07 Completed TROPONIN Q3H Lab 12/26/18 09:07 Completed TROPONIN Q3H Lab 12/26/18 12:00 Ordered TROPONIN Q3H Lab 12/26/18 15:00 Ordered TROPONIN Q3H Lab 12/26/18 18:00 Ordered TROPONIN Q3H Lab 12/26/18 21:00 Ordered Medication Summary Generic Name Dose Route Start Last Admin Trade Name Freq PRN Reason Stop Dose Admin Sodium Chloride 1,000 mls @ 100 mls/hr 12/26/18 09:00 12/26/18 09:25 Sodium Chloride 0.9% 1000 Ml IV 01/25/19 08:59 100 mls/hr .Q10H MARGI Administration Lab/Rad Data: Laboratory Result Diagrams 12/26/18 09:07 12/26/18 09:07 Laboratory Results 12/26/18 12/26/18 12/26/18 Range/Units Unknown 09:07 09:07 WBC (4.0-10.5) K/mm3 RBC (4.1-5.4) M/mm3 Hgb (12.0-16.0) gm/dl Hct (35-47) % MCV (78-100) fl MCH (26-32) pg MCHC (32-36) g/dl RDW (11.5-14.0) % Plt Count (150-450) K/mm3 MPV (6-9.5) fl Gran % (36.0-66.0) % Eos # (Auto) (0-0.5) Absolute Lymphs (auto) (1.0-4.6) Absolute Monos (auto) (0.0-1.3) Lymphocytes % (24.0-44.0) % Monocytes % (0.0-12.0) % Eosinophils % (0.00-5.0) % Basophils % (0.0-0.4) % Absolute Granulocytes (1.4-6.9) Basophils # (0-0.4) Sodium 142 (137-145) mmol/L Potassium 4.4 (3.5-5.1) mmol/L Chloride 106 (98-107) mmol/L Carbon Dioxide 25 (22-30) mmol/L Anion Gap 15.9 H (5-15) MEQ/L BUN 25 H (7-17) mg/dL Creatinine 1.02 (0.52-1.04) mg/dL Estimated GFR 54.6 ML/MIN Glucose 149 H (74-106) mg/dL Calcium 10.5 H (8.4-10.2) mg/dL Magnesium 1.6 (1.6-2.3) mg/dL Total Bilirubin 1.80 H (0.2-1.3) mg/dL AST 39 H (14-36) U/L ALT 24 (0-35) U/L Alkaline Phosphatase 184 H (38-126) U/L Troponin I 1.000 H* (0.000-0.034) ng/mL Serum Total Protein 7.1 (6.3-8.2) g/dL Albumin 4.3 (3.5-5.0) g/dL Digoxin 1.6 (0.8-1.9) ng/mL 12/26/18 Range/Units 09:07 WBC 10.6 H (4.0-10.5) K/mm3 RBC 5.09 (4.1-5.4) M/mm3 Hgb 14.3 (12.0-16.0) gm/dl Hct 45.6 (35-47) % MCV 89.6 (78-100) fl MCH 28.1 (26-32) pg MCHC 31.4 L (32-36) g/dl RDW 14.3 H (11.5-14.0) % Plt Count 122 L (150-450) K/mm3 MPV 10.4 H (6-9.5) fl Gran % 74.1 H (36.0-66.0) % Eos # (Auto) 0.47 (0-0.5) Absolute Lymphs (auto) 1.41 (1.0-4.6) Absolute Monos (auto) 0.81 (0.0-1.3) Lymphocytes % 13.3 L (24.0-44.0) % Monocytes % 7.7 (0.0-12.0) % Eosinophils % 4.4 (0.00-5.0) % Basophils % 0.5 (0.0-0.4) % Absolute Granulocytes 7.83 H (1.4-6.9) Basophils # 0.05 (0-0.4) Sodium (137-145) mmol/L Potassium (3.5-5.1) mmol/L Chloride (98-107) mmol/L Carbon Dioxide (22-30) mmol/L Anion Gap (5-15) MEQ/L BUN (7-17) mg/dL Creatinine (0.52-1.04) mg/dL Estimated GFR ML/MIN Glucose (74-106) mg/dL Calcium (8.4-10.2) mg/dL Magnesium (1.6-2.3) mg/dL Total Bilirubin (0.2-1.3) mg/dL AST (14-36) U/L ALT (0-35) U/L Alkaline Phosphatase (38-126) U/L Troponin I (0.000-0.034) ng/mL Serum Total Protein (6.3-8.2) g/dL Albumin (3.5-5.0) g/dL Digoxin (0.8-1.9) ng/mL - Progress Progress: unchanged Discussed with : Joy Counseled pt/family regarding: lab results, diagnosis, need for follow-up, rad results - Departure Time of Disposition: 10:28 Departure Disposition: Home, Observation Clinical Impression: Non-ST elevation myocardial infarction (NSTEMI) of indeterminate age, Hypoglycemia due to type 2 diabetes mellitus Atrial fibrillation Qualifiers: Atrial fibrillation type: paroxysmal Qualified Code(s): I48.0 - Paroxysmal atrial fibrillation CAD (coronary artery disease) Qualifiers: Coronary Disease-Associated Artery/Lesion type: [place] artery [place] vs. transplanted heart: [place] heart Associated angina: without angina Qualified Code(s): I25.10 - Atherosclerotic heart disease of [place] coronary artery without angina pectoris Condition: Fair Critical Care Time: Yes Critical Care Time(excluding separately billable procedures): 30-74 minutes Referrals: PO SCOTT MD [Primary Care Provider] -
[2018-12-26] MEDS ORDERED: Senokot-S Tablet PO PRN (10:28)
[2018-12-26] MEDS ORDERED: Zofran 4 MG/2 ML VIAL IV PRN (10:28)
[2018-12-26] MEDS ORDERED: MAALOX ES 30 ML UNIT DOSE PO PRN (10:28)
[2018-12-26] MEDS ORDERED: TYLENOL 325 MG PO PRN (10:28)
[2018-12-26] MEDS ORDERED: MILK OF MAGNESIA 30 ML PO PRN (10:28)
[2018-12-26] MEDS ORDERED: NovoLOG Insulin SQ PRN (10:28)
[2018-12-26] MEDS: ECOTRIN 81 MG PO SCH (15:21)
[2018-12-26] MEDS: Lopressor 50 MG PO SCH (15:21)
[2018-12-26] MEDS: NORVASC 5 MG PO SCH (15:21)
[2018-12-26] MEDS: ELIQUIS 2.5 MG TABLET PO SCH ×2 (15:21→21:27)
[2018-12-26] MEDS: Cozaar 50 MG PO SCH (15:21)
[2018-12-26] MEDS: NORCO 5/325 MG PO PRN ×2 (16:15→23:06)
[2018-12-26] MEDS: Glucophage XR 500 MG PO SCH (17:04)
[2018-12-26] MEDS: Protonix 20MG Tablet PO SCH (21:28)
--- NOTE | 2018-12-26 22:18 | XRAY ---
Indication: Neck pain following fall one week ago. Comparison: January 05, 2007. 3 views of the cervical spine again demonstrates normal alignment with osteopenia,, minimal C4 anterolisthesis, and mild multilevel degenerative disc disease again greatest at the C6-C7 level. No new/acute bony, articular, or soft tissue abnormalities.
[2018-12-27] MEDS: Sodium Chloride 0.9% 1000 ML 1,000 ML IV SCH (07:55)
[2018-12-27 08:24] LABS: Risk Ratio 2.4
[2018-12-27] MEDS: NORVASC 5 MG PO SCH (09:15)
[2018-12-27] MEDS: Cozaar 50 MG PO SCH (09:15)
[2018-12-27] MEDS: Lopressor 50 MG PO SCH (09:15)
[2018-12-27] MEDS: ELIQUIS 2.5 MG TABLET PO SCH ×2 (09:15→21:13)
[2018-12-27] MEDS: ECOTRIN 81 MG PO SCH (09:16)
[2018-12-27] MEDS ORDERED: Lanoxin 0.125MG TABLET PO SCH (10:00)
[2018-12-27] MEDS ORDERED: NON-FORMULARY ITEM (Losartan Potassium [Losartan Potassium] 100 MG) PO SCH (10:00)
[2018-12-27] MEDS ORDERED: BABY ASPIRIN 81 MG CHEW PO SCH (10:00)
[2018-12-27] MEDS ORDERED: Ecotrin 325 MG PO SCH (10:00)
[2018-12-27] MEDS ORDERED: VITAMIN D PO SCH (10:00)
[2018-12-27] MEDS ORDERED: FOLATE 1 MG PO SCH (10:00)
[2018-12-27] MEDS ORDERED: Amaryl 2 MG PO SCH (10:00)
[2018-12-27] MEDS ORDERED: NON-FORMULARY ITEM (Cholecalciferol (Vitamin D3) [Vitamin D3] 1,000 UNIT) PO SCH (10:00)
[2018-12-27] MEDS ORDERED: NON-FORMULARY ITEM (Amlodipine Besylate [Norvasc] 2.5 MG) PO SCH (10:00)
[2018-12-27] MEDS: Glucophage XR 500 MG PO SCH ×2 (16:55→16:59)
[2018-12-27] MEDS ORDERED: xanAX 0.5 MG PO ONE (18:00)
[2018-12-27] MEDS ORDERED: Lasix 20 MG/2 ML ONE (18:06)
[2018-12-27] MEDS ORDERED: LOPRESSOR 5 MG/5 ML INJECTION IV ONE (20:02)
[2018-12-27] MEDS ORDERED: LOPRESSOR 5 MG/5 ML INJECTION IV PRN (20:39)
[2018-12-27 21:27] LABS: Granulocyte Absolute (ANC) 18.23 (1.4-6.9); Hematocrit 48.5 % (35-47); Hemoglobin 15.1 gm/dl (12.0-16.0); Mean Cell Volume 90.1 fl (78-100); Mean Corpuscular Hemoglobin 28.1 pg (26-32); Mean Corpuscular Hgb Concent. 31.1 g/dl (32-36); Platelet Count 143 K/mm3 (150-450); Red Blood Count 5.38 M/mm3 (4.1-5.4); Red Cell Distribution Width 14.6 % (11.5-14.0); White Blood Count 20.8 K/mm3 (4.0-10.5)
[2018-12-27 21:51] LABS: ANION GAP 19.3 MEQ/L (5-15); BLOOD UREA NITROGEN 18 mg/dL (7-17); CHLORIDE 108 mmol/L (98-107); Calcium 9.3 mg/dL (8.4-10.2); Creatinine 1 0.89 mg/dL (0.52-1.04); Glucose 268 mg/dL (74-106); MAGNESIUM 1.4 mg/dL (1.6-2.3); NT PRO BNP 11000 pg/mL (0-1800); Potassium 3.9 mmol/L (3.5-5.1); SODIUM 139 mmol/L (137-145)
[2018-12-27 21:57] LABS: Carbon Dioxide 16 mmol/L (22-30)
[2018-12-27] MEDS ORDERED: Zocor 10MG PO SCH (22:00)
[2018-12-27] MEDS ORDERED: Lopressor 50 MG PO SCH (22:00)
[2018-12-27] MEDS: Protonix 20MG Tablet PO SCH (22:02)
[2018-12-28 00:24] LABS: ATYPICAL LYMPHS 3 %; BAND 3 % (0.0-2.0); Lymphocytes 6 % (24-44); Monocyte 4 % (0.0-12.0); Neutrophils 84 % (36.0-66.0); Platelet Estimate NORMAL (NORMAL); Total Cells Counted 100
[2018-12-28 05:08] VITALS: BP 150/80; PULSE 120; O2SAT 92
[2018-12-28] MEDS ORDERED: LOPRESSOR 5 MG/5 ML INJECTION IV PRN (06:56)
--- NOTE | 2018-12-28 08:47 | HP ---
HISTORY OF PRESENT ILLNESS: This is an 88 year-old patient of Dr. Long who presented to the emergency department. The patient tells me that she has no idea why she came to the emergency room and states that she should have stayed home. She is asking to be discharged today. She reports she did have chest pain that went from the front of her chest to the back and dyspnea. She denies any chest pain now. She resides at [facility] where her also resides. She reports a week ago that she thinks she turned around too fast, fell and hit her left forehead. She denies any syncope. She reports she has had some headache with that but Tylenol helps. In the emergency department the patient was found to have an elevated troponin. She was actually seen by her primary care doctor who was working in the emergency department. REVIEW OF SYSTEMS: No cough. No rhinorrhea. No fever. No abdominal pain. No lower extremity edema. Good appetite. PAST MEDICAL HISTORY: She reports a stroke x1, atrial fibrillation, deep venous thrombosis in her left leg and left leg soreness. Hypertension. PAST SURGICAL HISTORY: Cholecystectomy 30 years ago. MEDICATIONS: Please see the medication reconciliation sheet which I reviewed. ALLERGIES: NKDA. SOCIAL HISTORY: She denies tobacco. Rare alcohol use. She stays at [facility] with her . FAMILY HISTORY: Both her mother and father had history of stroke. PHYSICAL EXAMINATION: VITAL SIGNS: Temperature current 98.5F, heart rate 108, respiratory rate 20, blood pressure 161/79. Oxygen saturation 95% on room air. GENERAL: The patient is a pleasant talkative lady sitting up in no acute distress. CVS: She has an irregularly irregular rhythm. No murmurs, gallops or rubs are appreciated. CHEST: Clear to auscultation bilaterally. No crackles or wheezes. ABDOMEN: Soft, nontender, nondistended with normal bowel sounds. EXTREMITIES: No clubbing, cyanosis or edema. SKIN: Warm, dry and intact. Subjective tenderness to palpation of lower extremities bilaterally. LABORATORY DATA AND TESTS: She had serial troponins. The first one was elevated at 1.0. It peaked at 3.6 and currently 3.4. Hemoglobin A1C was 7.1. White blood cell count 10.6, PLT 122,000. Calcium 10.5, bilirubin 1.9. Fasting lipid profile within normal limits. Digoxin level normal. ASSESSMENT AND PLAN: 1) NON-ST ELEVATION MYOCARDIAL INFARCTION: Will continue with aspirin. Her heart rate has been high. She is on metoprolol tartrate at home but only takes it once a day so will give her the first dose now and change it to b.i.d. as her blood pressure has also been high and will try to control her heart rate after acute myocardial infarction. Her primary care doctor stated when he admitted her from the emergency room that she sees a biologics specialist, Dr. Mazariegos, but that there was nothing more that they could do for her coronary artery disease. Her EKG is unchanged from previous. It showed atrial fibrillation with QT prolongation and heart rate 79 this morning. Will continue with losartan as well and start a low dose statin. The patient is Supportive Care Only. She reports she is feeling better and wants to go home. However she should stay for further observation and try to control her heart rate. 2) HISTORY OF DEEP VENOUS THROMBOSIS: Will continue with her anticoagulation. 3) DIABETES MELLITUS TYPE 2: Will continue with her current oral hypoglycemic. Her primary care doctor could consider changing her glimepiride to Glipizide to try to prevent further hypoglycemic episodes as that has a shorter half-life. Will continue to monitor Accu-Chek's here in the hospital. 4) HYPERTENSION: Will continue with metoprolol which I have increased to b.i.d. 5) HISTORY OF ATRIAL FIBRILLATION: Will continue with digoxin. Her digoxin level was normal and the rate is currently controlled.
--- NOTE | 2018-12-28 08:48 | XRAY ---
Chin: Hypoxia. Low oxygenation. Comparison: April 02, 2017. Portable chest again demonstrates small bibasilar effusions with adjacent infiltrates/atelectasis but less than before. Stable borderline cardiomegaly, osteopenia, and bony degenerative changes. Comment: Preliminary interpretation was made by [facility]. No critical discrepancy.
[2018-12-28] MEDS ORDERED: Levofloxacin 500MG/100ML D5W 500 MG/100 ML BAG IV SCH (10:00)
[2018-12-28] MEDS ORDERED: Lopressor 50 MG PO ONE (11:30)
[2018-12-28] MEDS ORDERED: Lasix 20 MG/2 ML IV ONE (18:20)
[2018-12-29] MEDS ORDERED: Levaquin 250MG/50ML D5W 250 MG/50 ML BAG IV SCH (22:00)
== END 2018-12-28 06:23 | disposition expired ==
LOC: ED 08:48 → MED SURG 11:10
PROVIDERS: ADMIT Internal Medicine; ATTEND General Practice
DX: I21.4 Non-ST elevation (NSTEMI) myocardial infarction (principal); E11.9 Type 2 diabetes mellitus without complications; I10 Essential (primary) hypertension; R51 Headache; I48.91 Unspecified atrial fibrillation; I25.10 Atherosclerotic heart disease of native coronary artery without angina pectoris; Z86.718 Personal history of other venous thrombosis and embolism; Z86.73 Personal history of transient ischemic attack (TIA), and cerebral infarction without residual deficits
CPT/HCPCS: 36000; 36415; 71045; 72040; 80048; 80053; 80061; 80162; 82962; 83036; 83721; 83735; 83880; 84484; 85025; 87086; 93005; 96360; 96361; 99285; G0378; J1940; J1956; A9270-GY